=== PATIENT | male | born 1985 | race Caucasian/White ===

== ENCOUNTER 2023-10-07 13:38 | Inpatient (IN) | payer SELFPAY ==
[2023-10-07] VITALS (8 sets, daily range): BP systolic 127–162; BP diastolic 71–83; PULSE 110–126; RESP 13–31; TEMP 36.4–37; O2SAT 93–98; BMI 29.7
--- NOTE | 2023-10-07 14:08 | EX.ED.DYSGE1 ---
HPI <MILTON Gatica - Last Filed: 10/07/23 17:20> History of Present Illness Chief Complaint: General Illness Narrative Narrative: 37-year-old male presents after he became jaundiced over the last 3 days. He was a heavy drinker for years and over the last year had 1 bottle of Southern comfort per day. He essentially detox himself from alcohol at home from September 28 through October 01. He states he did not feel well and was lying in bed with occasional dry heaving and abdominal pain in the details are hazy. Over the last few days he has been feeling better and staying with his parents and drinking plenty of fluids and eating a small amount of toast and soup. He no longer has abdominal pain. He states he has not really had bowel movements recently due to lack of intake. His urine looks dark until he increase fluids. He denies history of alcohol detox or known liver disease. He takes no medications. He smokes 1 pack/day. PFSH <MILTON Gatica - Last Filed: 10/07/23 17:20> PFSH Medical History Alcohol abuse Chronic pain Pancreatitis Medical History no medical history Home Medications ?Medication ?Instructions ?Recorded ?Last Taken ?Type artifi.tears(hypromellose)(PF) 1.7 1 drp EACH EYE BID PRN dry eye(s) 10/07/23 Unknown History % eye drops with applicator prednisone 10 mg tablet See Taper PO DAILY #82 tabs 10/10/23 Unknown Rx Allergy/AdvReac Type Severity Reaction Status Date / Time No Known Allergies Allergy Verified 10/07/23 13:45 Family History no significant family his Surgical History (Updated 10/09/23 @ 14:[address] Nadir Colón MD) History of placement of ear tubes Surgical History no surgical history Social History Smoking Status: Current every day smoker tobacco type: cigarettes ROS <MILTON Gatica - Last Filed: 10/07/23 17:20> ROS ED ROS Narrative Constitutional: Negative for fever, chills. CVS: Negative for chest pain. Respiratory: Negative for shortness of breath. GI: Positive for abdominal pain which resolved. Negative for melena, hematochezia. : Negative for dysuria. EXAM <MILTON Gatica - Last Filed: 10/07/23 17:20> Physical Exam Narrative Exam Narrative: CONST: Patient sitting in no acute distress. EYES: Scleral icterus. ENT: Normal inspection, moist mucous membranes. NECK: Normal inspection. RESP: No respiratory distress, CTAB. CVS: Regular rate and rhythm, no murmur, no gallop. ABD: Soft and nontender, no guarding or rebound, nondistended, fluid wave present. SKIN: Jaundiced. EXTREMITIES: Normal appearance, no pedal edema. NEURO: Alert and answering questions appropriately. PSYCH: Normal affect. Const Vital Signs: 10/07/23 13:40 10/07/23 14:18 10/07/23 15:04 Temperature 97.8 F Temperature Source Temporal Pulse Rate 122 H 110 H Respiratory Rate 16 31 H Respiratory Pattern Normal Blood Pressure 148/78 H 127/72 H Blood Pressure Mean 101 90 Pulse Ox 98 95 Oxygen Delivery Method Room Air 10/07/23 16:21 Temperature Temperature Source Pulse Rate 116 H Respiratory Rate 26 H Respiratory Pattern Blood Pressure 143/77 H Blood Pressure Mean 99 Pulse Ox 95 Oxygen Delivery Method Room Air <Dr. Olu Bridges MD - Last Filed: 10/11/23 07:32> Physical Exam Const Vital Signs: 10/07/23 13:40 10/07/23 14:18 10/07/23 15:04 Temperature 97.8 F Temperature Source Temporal Pulse Rate 122 H 110 H Respiratory Rate 16 31 H Respiratory Pattern Normal Blood Pressure 148/78 H 127/72 H Blood Pressure Mean 101 90 Pulse Ox 98 95 Oxygen Delivery Method Room Air 10/07/23 16:21 Temperature Temperature Source Pulse Rate 116 H Respiratory Rate 26 H Respiratory Pattern Blood Pressure 143/77 H Blood Pressure Mean 99 Pulse Ox 95 Oxygen Delivery Method Room Air MDM <MILTON Gatica - Last Filed: 10/07/23 17:20> [facility] Narrative Medical decision making narrative: History gathered from: patient and family Differential: Alcoholic hepatitis versus liver failure, anemia, electrolyte abnormality Consults: GI, hospitalist Patient has longstanding history of alcohol abuse and recently detoxed at home and now presents with jaundice. He appears well and nontoxic. He is tachycardic between 110?120, otherwise stable vital signs. He has scleral icterus and jaundice. He has mild bibasilar crackles but no symptoms of dyspnea. He has a small amount of abdominal ascites with no tenderness. Labs show significant abnormalities with WBC of 16.0, hemoglobin 8.4, normal platelets at 195. Sodium is 129, potassium 3.1, normal renal function. Total bili is 15.8, elevated LFTs, lipase 119. This is consistent with alcoholic hepatitis and mild pancreatitis. I discussed the case with Dr. Watters who recommended admission and the following treatment: IV Protonix 40 mg every 12 hours IV Solu-Medrol 40 mg every 12 hours Ceftriaxone 1 g every 24 hours due to leukocytosis Blood cultures CT of the abdomen/pelvis which will be obtained. CT shows heterogenous liver suggesting liver disease, ascites, and acute pancreatitis with hypodense lesions throughout the pancreas of unknown significance. Case was discussed with the hospitalist for admission. I have personally performed a face to face assessment of the patient and have reviewed the EDISON Note. I performed a substantive portion of the visit including all aspects of the following. My napoles findings include: History is remarkable for dark-colored urine, jaundice. Patient states he detoxed at home. He was drinking 1/5 of SightCine. He denies black or maroon stool. He states his urine was dark is no longer dark. He denies light-colored stool. Exam is patient is jaundiced. He has scleral icterus. Abdomen is seems prominent. There is fluid wave and shifting dullness. He has no tenderness. He has no bruising noted. PA note was reviewed. Medical Decision Making concern patient has alcoholic liver disease. Will obtain appropriate blood work and determine if patient needs inpatient versus outpatient treatment. Other additions or changes: [None] Lab Data Labs: Laboratory Results - last 24 hr 10/07/23 14:10 WBC 16.0 H RBC 2.45 L Hgb 8.4 L Hct 24.6 L MCV 100.4 H MCH 34.3 H MCHC 34.1 RDW Std Deviation 48.1 H RDW Coeff of Jc 13.2 Plt Count 195 MPV 9.5 Immature Gran % (Auto) 1.100 H Neut % (Auto) 68.6 Lymph % (Auto) 21.1 [place] % (Auto) 8.4 Eos % (Auto) 0.6 Baso % (Auto) 0.2 Absolute Neuts (auto) 11.0 H Absolute Lymphs (auto) 3.39 Nucleated RBC % 0 PT 18.9 H INR 1.6 Sodium 129 L Potassium 3.1 L Chloride 92 L Carbon Dioxide 27.0 Anion Gap 10 BUN 4 L Creatinine 0.75 Estim Creat Clear Calc 161.65 Est GFR (MDRD) Af Amer 151 Est GFR (MDRD) Non-Af 125 BUN/Creatinine Ratio 5.3 L Glucose 113 H Calcium 8.8 Total Bilirubin 15.80 H* Direct Bilirubin 11.22 H AST 164 H ALT 55 Alkaline Phosphatase 202 H Total Protein 7.8 Albumin 1.8 L Globulin 6.0 H Lipase 119 H Radiography Diagnostic Testing: Clinical Impression(s) from Imaging Studies Abdomen/Pelvis CT 10/07/23 15:43 IMPRESSION: (NOT LISTED IN ORDER OF SIGNIFICANCE) Acute pancreatitis. Ascites. Multiple hypodense lesions in the pancreatic head and neck measuring up to 16 mm. These maybe stenosis. These may also represent IPMN. Pancreatic neoplasm is not excluded. Heterogeneous liver suggests hepatocellular disease. Other findings as above. Electronically Signed: Branden Brito MD at 16:41 EDT Reading Location ID and State: [facility] / [place] , Service support , <Dr. Olu Bridges MD - Last Filed: 10/11/23 07:32> [facility] MDM Narrative Medical decision making narrative: I have personally performed a face to face assessment of the patient and have reviewed the EDISON Note. I performed a substantive portion of the visit including all aspects of the following. My napoles findings include: History is remarkable for dark-colored urine, jaundice. Patient states he detoxed at home. He was drinking 1/5 of SightCine. He denies black or maroon stool. He states his urine was dark is no longer dark. He denies light-colored stool. Exam is patient is jaundiced. He has scleral icterus. Abdomen is seems prominent. There is fluid wave and shifting dullness. He has no tenderness. He has no bruising noted. PA note was reviewed. Medical Decision Making concern patient has alcoholic liver disease. Will obtain appropriate blood work and determine if patient needs inpatient versus outpatient treatment. Other additions or changes: [None] Lab Data Attestation: I reviewed the patient's lab results. Lab results narrative: White count is elevated 16,000 with no shift. Patient is anemic with an H&H of 8.4 and 24.6 with macrocytic indices consistent with alcohol abuse. Total bili and direct bili are elevated at 15.8 11.22 respectively. AST is slightly elevated 164 with an alkaline phosphatase 202. Albumin is only 1.8. Lipase is slightly elevated 119. This is not even 2 times normal. This is not significant since patient is having no abdominal pain. PT and INR slightly elevated 18.9 and 1.6 respectively. Electrolyte panel reveals hyponatremia, hypokalemia and hypochloremia. CO2 and anion gap are normal. Labs: Laboratory Results - last 24 hr 10/07/23 14:10 WBC 16.0 H RBC 2.45 L Hgb 8.4 L Hct 24.6 L MCV 100.4 H MCH 34.3 H MCHC 34.1 RDW Std Deviation 48.1 H RDW Coeff of Jc 13.2 Plt Count 195 MPV 9.5 Immature Gran % (Auto) 1.100 H Neut % (Auto) 68.6 Lymph % (Auto) 21.1 [place] % (Auto) 8.4 Eos % (Auto) 0.6 Baso % (Auto) 0.2 Absolute Neuts (auto) 11.0 H Absolute Lymphs (auto) 3.39 Nucleated RBC % 0 PT 18.9 H INR 1.6 Sodium 129 L Potassium 3.1 L Chloride 92 L Carbon Dioxide 27.0 Anion Gap 10 BUN 4 L Creatinine 0.75 Estim Creat Clear Calc 161.65 Est GFR (MDRD) Af Amer 151 Est GFR (MDRD) Non-Af 125 BUN/Creatinine Ratio 5.3 L Glucose 113 H Calcium 8.8 Total Bilirubin 15.80 H* Direct Bilirubin 11.22 H AST 164 H ALT 55 Alkaline Phosphatase 202 H Total Protein 7.8 Albumin 1.8 L Globulin 6.0 H Lipase 119 H Radiography Diagnostic Testing: Clinical Impression(s) from Imaging Studies Abdomen/Pelvis CT 10/07/23 15:43 IMPRESSION: (NOT LISTED IN ORDER OF SIGNIFICANCE) Acute pancreatitis. Ascites. Multiple hypodense lesions in the pancreatic head and neck measuring up to 16 mm. These maybe stenosis. These may also represent IPMN. Pancreatic neoplasm is not excluded. Heterogeneous liver suggests hepatocellular disease. Other findings as above. Electronically Signed: Branden Brito MD at 16:41 EDT , Discharge Plan Triage Chief Complaint: General Illness ED Midlevel Provider: Porsche Coyle ED Provider: Olu Bridges Dx/Rx/DC Orders Clinical Impression: Alcoholic pancreatitis, Alcoholic hepatitis, Leukocytosis, Anemia, Acute hyponatremia, Hypokalemia, Jaundice Primary Care Provider: Care Physician,No Primary
[2023-10-07 14:22] LABS: Absolute Lymphocyte Count 3.39 X10^3/uL (0.83-4.51); Basophil# 0.04 X10^3/uL; Basophil% 0.2 % (0-1); Eosinophils% 0.6 % (0-5); Hematocrit 24.6 % (40-54); Hemoglobin 8.4 g/dL (13.0-16.5); Lymphocyte # 3.39 X10^3/ul (0.83-4.51); Lymphocyte % 21.1 % (19-41); Mean Corp Hgb Conc 34.1 g/dL (32-36); Mean Corpuscular Hgb 34.3 pg (27.0-32.0); Mean Corpuscular Volume 100.4 fL (80-94); Mean Platelet Vol. 9.5 fl (6.2-12.0); Monocyte# 1.35 X10^3/uL; Monocyte% 8.4 % (0-10); NRBC Flagged by Analyzer 0 % (0-5); Neutrophil # 10.99 X10^3/uL (2.7-7.7); Neutrophil % 68.6 % (47-70); Platelet Count 195 K/mm3 (150-450); RBC Distribution Width CV 13.2 % (11.6-14.6); RBC Distribution Width SD 48.1 fl (35.1-43.9); Red Blood Count 2.45 M/mm3 (4.6-6.2)
[2023-10-07 14:41] LABS: International Normalized Ratio 1.6; Prothrombin Time (Protime)PT. 18.9 SECONDS (11.7-14.9)
[2023-10-07 14:43] LABS: AST(SGOT) 164 U/L (15-37); Alanine Aminotransfer ALT/SGPT 55 U/L (16-61); Albumin, Serum 1.8 g/dL (3.2-5.0); Alkaline Phosphatase 202 U/L (45-117); Anion Gap 10 (5-15); BUN 4 mg/dL (7-18); BUN/Creat Ratio 5.3 RATIO (10-20); Bilirubin, Direct 11.22 mg/dL (0.00-0.30); Calcium,Total 8.8 mg/dL (8.5-10.1); Chloride 92 mmol/L (98-107); Creatinine, Serum 0.75 mg/dL (0.70-1.30); EST Glomerular Filtration Rate 125 mL/min (>60); Est Glom Filt Rate - Afr Amer 151 mL/min (>60); Estimated Creatinine Clearance 161.65 ml/min; Glucose 113 mg/dL (74-106); Lipase 119 U/L (13-75); Potassium 3.1 mmol/L (3.5-5.1); Protein, Total 7.8 g/dL (6.4-8.2); Sodium Level 129 mmol/L (136-145)
--- NOTE | 2023-10-07 15:43 | CT_ITS ---
STUDY: CT Abdomen And Pelvis W/ Contrast Injection 10/07/2023 4:36 PM REASON FOR EXAM: Male, 37 years old. liver failure TECHNIQUE: Transaxial images were obtained without oral contrast, and IV 100mL Isovue-370 intravenous contrast. Individualized dose optimization techniques were used for this CT. COMPARISON: None FINDINGS: The visualized lung bases are unremarkable. The visualized portions of the heart are within normal limits. There is hepatomegaly with diffuse hepatic enlargement. Free fluid around the liver. Liver appears slightly heterogeneous. Unremarkable gallbladder and extrahepatic biliary system. Unremarkable spleen. There is diffuse enlargement of the pancreas with tucker-pancreatic edema suggesting acute pancreatitis. Multiple hypodense lesions in the pancreatic head and neck measuring up to 16 mm. These maybe stenosis. These may also represent IPMN. Pancreatic neoplasm is not excluded. SE 2 iM: 49. Scattered subcentimeter lymph nodes around the pancreas. Unremarkable bilateral adrenal glands. No acute findings of the right kidney. No acute findings of the left kidney. Unremarkable visualized stomach. Unremarkable small intestine. Unremarkable colon. There is non-visualization of the appendix. There are no acute findings of the abdominal aorta. Unremarkable inferior vena cava. Subcentimeter mesenteric lymph nodes. Unremarkable urinary bladder. Mild presacral inflammatory changes. There are bilateral inguinal hernias containing fat. There is no bowel involvement. There is no incarceration. There is no findings suggesting that this is causing a bowel obstruction. Unremarkable osseous structures. CT/Abdomen/Pelvis W IV Cont ONLY IMPRESSION: (NOT LISTED IN ORDER OF SIGNIFICANCE) Acute pancreatitis. Ascites. Multiple hypodense lesions in the pancreatic head and neck measuring up to 16 mm. These maybe stenosis. These may also represent IPMN. Pancreatic neoplasm is not excluded. Heterogeneous liver suggests hepatocellular disease. Other findings as above. Electronically Signed: Branden Brito MD at 16:41 EDT ,
--- NOTE | 2023-10-07 15:55 | EX.PCM.CON.G ---
HPI Consult Data Date of Consult: 10/08/23 HPI Narrative Reason for Consultation: Jaundice HPI Narrative: JAVIER LANTIGUA, is a 37 M who presents to the ED with worsening abdominal pain and jaundice. He has a past medical history of alcohol abuse. He came into the hospital after being very nauseous and dizzy. He did have 1 episode of vomiting. In the ED he was discovered to be normotensive and tachycardic. Biochemical workup was consistent with alcoholic hepatitis and alcoholic pancreatitis. No imaging thus far. He does have an INR 1.6 and a bilirubin of 15. He does not take any blood thinners. He takes no medicines on a daily basis. He denies any Tylenol. Denies any family history of liver disease. [facility] Medical History (Updated 10/08/23 @ 16:[address] Naeem Pino, ) Alcohol abuse Chronic pain Pancreatitis Medical History no medical history Home Medications ?Medication ?Instructions ?Recorded ?Last Taken ?Type artifi.tears(hypromellose)(PF) 1.7 1 drp EACH EYE BID PRN dry eye(s) 10/07/23 Unknown History % eye drops with applicator Allergy/AdvReac Type Severity Reaction Status Date / Time No Known Allergies Allergy Verified 10/07/23 13:45 Family History no significant family his Surgical History no surgical history Social History Smoking Status: Current every day smoker tobacco type: cigarettes ROS Review of Systems ROS Unobtainable: other Constitutional Constitutional: Denies fatigue, fever(s), poor appetite, weight gain or weight loss ENT HEENT: Denies mouth lesions Cardiovascular Cardiovascular: Denies abdominal bloating, abdominal edema or abdominal pain Respiratory/Chest Respiratory/Chest: Denies change in mental status, change in phlegm color, chest congestion or chest tightness Gastrointestinal Gastrointestinal: Denies belching, bloating, change in bowel habits, change in stool character, chewing difficulty, coffee ground emesis, constipation, cramping, diarrhea, dyspepsia, dysphagia, early satiety, excessive flatus, fecal incontinence, heartburn, hematemesis, hematochezia, hemorrhoids, loose stools, melena, nausea, odynophagia, rectal bleeding, tenesmus, vomiting or weight changes Genitourinary Genitourinary: Denies abdominal discomfort, burning urination or itching Musculoskeletal Musculoskeletal: Reports as per HPI; Denies muscle weakness or myalgias Integumentary Integumentary: Denies jaundice Neurologic Neurologic: Denies lack of coordination or weakness Psychiatric Psychiatric: Denies confusion, depression, memory loss, mood swings, paranoia or suicidal ideation Endocrine Endocrinology: Denies systems reviewed and no addt'l complaints, except as documented Hematologic/Lymphatic Hematologic/Lymphatic: Denies anemia, easy bleeding, easy bruising or lymphadenopathy Allergic/Immunologic Allergic/Immunologic: Denies systems reviewed and no addt'l complaints, except as documented Physical Exam Const alert General Appearance: cooperative Orientation / Consciousness: oriented to person HEENT hearing grossly normal bilaterally Head and Scalp: normal to inspection Face and Sinus: face symmetric Nose: external nose normal Mouth: oral and palatal mucosa normal Eyes conjunctivae normal General Eye: normal appearance of both eyes Neck full ROM General: normal visual inspection Lymph Lymphatic: no lymphadenopathy noted Chest inspection of chest normal and palpation of chest normal Chest: symmetrical chest wall rise Resp normal respiratory effort Effort and Inspection: able to speak in complete sentences Cardio regular rate GI non-distended Percussion: normal to percussion Rectal Exam: deferred Neuro Speech: speech normal Gait (Neuro): normal gait Lab / Micro Data 10/08/23 05:00 10/08/23 05:00 Labs: Laboratory Results - last 24 hr 10/07/23 14:10: WBC 16.0 H, RBC 2.45 L, Hgb 8.4 L, Hct 24.6 L, MCV 100.4 H, MCH 34.3 H, MCHC 34.1, RDW Std Deviation 48.1 H, RDW Coeff of Jc 13.2, Plt Count 195, MPV 9.5, Immature Gran % (Auto) 1.100 H, Neut % (Auto) 68.6, Lymph % (Auto) 21.1, [place] % (Auto) 8.4, Eos % (Auto) 0.6, Baso % (Auto) 0.2, Absolute Neuts (auto) 11.0 H, Absolute Lymphs (auto) 3.39, Nucleated RBC % 0, PT 18.9 H, INR 1.6, Sodium 129 L, Potassium 3.1 L, Chloride 92 L, Carbon Dioxide 27.0, Anion Gap 10, BUN 4 L, Creatinine 0.75, Estim Creat Clear Calc 161.65, Est GFR (MDRD) Af Amer 151, Est GFR (MDRD) Non-Af 125, BUN/Creatinine Ratio 5.3 L, Glucose 113 H, Calcium 8.8, Total Bilirubin 15.80 H*, Direct Bilirubin 11.22 H, AST 164 H, ALT 55, Alkaline Phosphatase 202 H, Total Protein 7.8, Albumin 1.8 L, Globulin 6.0 H, Lipase 119 H Assessment & Plan Assessment/Plan (1) Alcoholic pancreatitis: (2) Alcoholic hepatitis: (3) Cirrhosis: PLAN: Plan 37-year-old with past medical history of alcohol abuse presents with worsening jaundice and abdominal pain. His labs, presentation and I suspect imaging will show alcoholic pancreatitis and alcoholic hepatitis with hepatosplenomegaly. His Madre score is 37. I would recommend methylprednisolone 40 mg every 12 hours. He does have some mild encephalopathy. I will get blood cultures and put him on ceftriaxone 1 g daily. I will get imaging with a CT scan abdomen pelvis. He will eventually need upper endoscopy for screening for varices. Hyponatremia-secondary to possible beer [place] He should get acute hepatitis A, B, and C drawn this if he has any other history of hepatitis other than alcoholic hepatitis. Charges/Coding Visit Charges Inpatient E&M: 99171 Init Hosp L3
[2023-10-07] MEDS: Pantoprazole Sodium 40 MG in 0.9% Normal Saline (100mL MB+) 100 ML 330 MG IV (16:17)
[2023-10-07] MEDS: Ceftriaxone 1 GM/50 ML BAG IV (16:38)
--- NOTE | 2023-10-07 17:03 | PCM.HP.STD ---
HPI - General General Date of Admission: 10/07/23 Date of Service: 10/07/23 Chief Complaint: Jaundice HPI Narrative JAVIER LANTIGUA, is a 37 M who presents to the ED with jaundice. He drinks 1 bottle of cheap alcohol every day, and smokes about a pack a day. He tried to quit alcohol 3 days back, after experiencing detoxification symptoms he moved over to his mom's place. Per the mother his diet is very erratic and poor. He has noticed worsening jaundice of his skin for the last 2 days. Mother noticed it when he moved over to her house. Denies any abdominal pain His vitals in the ED blood pressure 143/77 pulse 116, respiratory rate 26 well on room air, WBC 16.0, hemoglobin 8.4, platelet 195, INR 1.6, sodium 129, potassium 3.1, creatinine 0.7, total bilirubin 15.8, direct bilirubin 11.2, AST 164 ALT 55, alk phos 202, albumin 1.8, lipase 119 CT abdomen showed hepatomegaly with diffuse hepatic enlargement, free fluid around the liver, unremarkable gallbladder and extracardiac biliary system, diffuse enlargement of the pancreas with peripancreatic edema suggestive of acute pancreatitis hypodense lesions in the head and neck measuring up to 16 mm, pancreatic neoplasm is not excluded could be IPMN, scattered subcentimeter lymph nodes around the pancreas. Bilateral inguinal hernias containing fat. Blood cultures have been sent from the ED. Gastroenterology evaluated the patient in the ED for abdominal pain and jaundice there are concerns regarding alcoholic hepatitis and plan alcoholic pancreatitis it is recommended to be on methylprednisone 40 mg every 12 hours for Madrey score of 37. PFSH Medical History no medical history Home Medications ?Medication ?Instructions ?Recorded ?Last Taken ?Type artifi.tears(hypromellose)(PF) 1.7 1 drp EACH EYE BID PRN dry eye(s) 10/07/23 Unknown History % eye drops with applicator Allergy/AdvReac Type Severity Reaction Status Date / Time No Known Allergies Allergy Verified 10/07/23 13:45 Family History no significant family his Surgical History no surgical history Social History Smoking Status: Unknown if ever smoked ROS Review of Systems ROS Unobtainable: Denies due to encephalopathy, due to endotracheal tube, due to mental condition, due to mental status or other Constitutional Constitutional: Reports change in weight, fatigue and malaise Eyes Eyes: Denies blurry vision, change in eye color, change in vision, discharge from eye(s), double vision, erythema, eye pain, loss of vision or other ENT HEENT: Denies abnormal hearing, dysphagia, ear pain, epistaxis, headache(s), hearing loss, nasal congestion, nasal discharge, post nasal drip, sinus pressure, sore throat or other Cardiovascular Cardiovascular: Denies chest pain, claudication, dyspnea on exertion, edema, lightheadedness, orthopnea, palpitations, paroxysmal nocturnal dyspnea, rapid heart rate, syncope or other Respiratory/Chest Respiratory/Chest: Denies cough, dyspnea, excessive phlegm production, hemoptysis, productive cough, shortness of breath at rest, shortness of breath with exertion, wheezing or other Gastrointestinal Gastrointestinal: Reports constipation; Denies hematemesis, hematochezia, loose stools, melena, nausea or vomiting Genitourinary Genitourinary: Denies burning urination, difficulty urinating, dysuria, hematuria, nocturia, urinary frequency, urinary hesitancy, urinary incontinence, urinary urgency or other Musculoskeletal Musculoskeletal: Denies arthralgias, back pain, joint pain, joint stiffness, joint swelling, myalgias, neck pain or other Neurologic Neurologic: Denies abnormal gait, abnormal speech, confusion, disequilibrium, dizziness, focal weakness, headache(s), numbness, paresthesias, seizure-like activity, seizures, syncope, tingling, tremor(s) or other Psychiatric Psychiatric: Denies anxiety, depression, homicidal ideation, suicidal ideation or other Endocrine Endocrinology: Denies change in body appearance, cold intolerance, excessive sweating, heat intolerance, polydipsia, polyuria or other Hematologic/Lymphatic Hematologic/Lymphatic: Denies anemia, easy bleeding, easy bruising, lymphadenopathy or other Allergic/Immunologic Allergic/Immunologic: Denies rhinitis, hives, eczemia, asthma or other Vital Signs Vital Signs Vital Signs: 10/07/23 13:40 10/07/23 14:18 10/07/23 15:04 Temperature 97.8 F Temperature Source Temporal Pulse Rate 122 H 110 H Respiratory Rate 16 31 H Respiratory Pattern Normal Blood Pressure 148/78 H 127/72 H Blood Pressure Mean 101 90 Pulse Ox 98 95 Oxygen Delivery Method Room Air 10/07/23 16:21 Temperature Temperature Source Pulse Rate 116 H Respiratory Rate 26 H Respiratory Pattern Blood Pressure 143/77 H Blood Pressure Mean 99 Pulse Ox 95 Oxygen Delivery Method Room Air Weight Weight: 213 lb 9.6 oz Body Mass Index (BMI) 29.7 Physical Exam Const alert and oriented x3 HEENT normocephalic and moist oral mucous membranes Eyes Eyes Narrative: Deeply icteric Neck no lymphadenopathy Resp normal respiratory effort Cardio regular rate and regular rhythm GI normal to inspection, nondistended, normoactive bowel sounds Extremity normal to inspection Skin Skin Narrative: BP jaundiced, freckles over the entire skin, spider angiomata present Neuro oriented x3 Psych affect normal Results Medical Records Data Attestation: I reviewed the patient's medical records Lab / Micro Data Attestation: I reviewed the patient's lab results. 10/07/23 14:10 10/07/23 14:10 Labs: Laboratory Results - last 24 hr 10/07/23 14:10: WBC 16.0 H, RBC 2.45 L, Hgb 8.4 L, Hct 24.6 L, MCV 100.4 H, MCH 34.3 H, MCHC 34.1, RDW Std Deviation 48.1 H, RDW Coeff of Jc 13.2, Plt Count 195, MPV 9.5, Immature Gran % (Auto) 1.100 H, Neut % (Auto) 68.6, Lymph % (Auto) 21.1, [place] % (Auto) 8.4, Eos % (Auto) 0.6, Baso % (Auto) 0.2, Absolute Neuts (auto) 11.0 H, Absolute Lymphs (auto) 3.39, Nucleated RBC % 0, PT 18.9 H, INR 1.6, Sodium 129 L, Potassium 3.1 L, Chloride 92 L, Carbon Dioxide 27.0, Anion Gap 10, BUN 4 L, Creatinine 0.75, Estim Creat Clear Calc 161.65, Est GFR (MDRD) Af Amer 151, Est GFR (MDRD) Non-Af 125, BUN/Creatinine Ratio 5.3 L, Glucose 113 H, Calcium 8.8, Total Bilirubin 15.80 H*, Direct Bilirubin 11.22 H, AST 164 H, ALT 55, Alkaline Phosphatase 202 H, Total Protein 7.8, Albumin 1.8 L, Globulin 6.0 H, Lipase 119 H Imaging Radiology Impression Abdomen/Pelvis CT 10/07/23 15:43 IMPRESSION: (NOT LISTED IN ORDER OF SIGNIFICANCE) Acute pancreatitis. Ascites. Multiple hypodense lesions in the pancreatic head and neck measuring up to 16 mm. These maybe stenosis. These may also represent IPMN. Pancreatic neoplasm is not excluded. Heterogeneous liver suggests hepatocellular disease. Other findings as above. Electronically Signed: Branden Brito MD at 16:41 EDT Reading Location ID and State: [facility] / [place] , Service support , Assessment & Plan Assessment/Plan (1) Jaundice: PLAN: Plan 37-year-old with no significant past medical history presents to the ED with worsening jaundice over the last few days. He has a significant history of alcohol use drinks about 1 bottle of liquor every day along with 1 pack of cigarettes per day. The reason for his jaundice is not entirely clear but likely associated with acute alcoholic hepatitis with suspected underlying cirrhosis based on clinical exam [spider angiomas], hypoalbuminemia and coagulopathy. Pancreatitis seen on imaging but patient does not have abdominal pain, and lipase is less than 3 times upper limit of normal. Does not fulfill criteria for acute pancreatitis. #Acute alcoholic hepatitis [Madrey discriminant function 36] #Suspected underlying cirrhosis -Appreciate recs by gastroenterology -Prednisone 40 mg daily, switch to prednisolone after viral serologies negative -Check Lille score after 1 week of therapy -Hepatitis B,C,A, HIV serology -Daily coagulopathy labs -Daily liver labs -MRCP given the lesion in the pancreas head to rule out malignancy or mass [painless jaundice] -Nutrition consult given the severe hypoalbuminemia -Importance of alcohol cessation was emphasized, last drink was 4 days back out of withdrawal time period -May require outpatient EGD for variceal screening #Acute pancreatitis on imaging #IPMN/pancreatic lesion -Clinically does not fulfill criteria for acute pancreatitis -MRCP as above #Hypokalemia -Continue monitor Open received correction in the ED #Hypertension -Monitor blood pressure -Not starting anti hypertensives right now #Chronic smoking -Nicotine cessation and nicotine patches as needed #DVT: -Moderate risk -Risk despite of increased INR given the cirrhosis -Injection heparin 5000 units twice daily Charges/Coding Visit Charges Inpatient E&M: 61910 Init Hosp L2
[2023-10-07] MEDS: Potassium Chloride Oral Tablet 20 MEQ 40 MEQ PO (17:36)
[2023-10-07] MEDS: Heparin Injection (Vial) 5,000 UNIT/ML VIAL 5000 UNIT SC (20:14)
[2023-10-08 02:50] VITALS: BP 127/73; PULSE 105; RESP 16; TEMP 35.9; O2SAT 92
[2023-10-08 03:16] VITALS: BMI 29.7
[2023-10-08 05:40] LABS: Absolute Lymphocyte Count 2.26 X10^3/uL (0.83-4.51); Absolute Neutrophil Count 11.4 X10^3/uL (2.0-7.7); Basophil# 0.02 X10^3/uL; Basophil% 0.1 % (0-1); Eosinophil# 0.01 X10^3/uL; Eosinophils% 0.1 % (0-5); Hematocrit 22.4 % (40-54); Hemoglobin 7.7 g/dL (13.0-16.5); Lymphocyte # 2.26 X10^3/ul (0.83-4.51); Lymphocyte % 15.1 % (19-41); Mean Corp Hgb Conc 34.4 g/dL (32-36); Mean Corpuscular Hgb 34.8 pg (27.0-32.0); Mean Corpuscular Volume 101.4 fL (80-94); Mean Platelet Vol. 9.5 fl (6.2-12.0); Monocyte# 1.13 X10^3/uL; Monocyte% 7.6 % (0-10); NRBC Flagged by Analyzer 0 % (0-5); Neutrophil # 11.39 X10^3/uL (2.7-7.7); Neutrophil % 76.2 % (47-70); Platelet Count 180 K/mm3 (150-450); RBC Distribution Width CV 13.6 % (11.6-14.6); Red Blood Count 2.21 M/mm3 (4.6-6.2)
[2023-10-08 06:17] LABS: International Normalized Ratio 1.6; Prothrombin Time (Protime)PT. 19.4 SECONDS (11.7-14.9)
[2023-10-08 06:19] LABS: ALB/GLOB Ratio 0.3 RATIO (0.9-2.4); AST(SGOT) 138 U/L (15-37); Alanine Aminotransfer ALT/SGPT 55 U/L (16-61); Albumin, Serum 1.6 g/dL (3.2-5.0); Alkaline Phosphatase 184 U/L (45-117); Anion Gap 7 (5-15); BUN 7 mg/dL (7-18); BUN/Creat Ratio 13.3 RATIO (10-20); Bilirubin, Direct 8.94 mg/dL (0.00-0.30); Calcium,Total 8.5 mg/dL (8.5-10.1); Chloride 96 mmol/L (98-107); Creatinine, Serum 0.52 mg/dL (0.70-1.30); EST Glomerular Filtration Rate 188 mL/min (>60); Est Glom Filt Rate - Afr Amer 228 mL/min (>60); Estimated Creatinine Clearance 232.72 ml/min; Globulin 5.7 g/dL (2.2-4.2); Glucose 138 mg/dL (74-106); Magnesium 2.4 mg/dL (1.6-2.6); Potassium 4.1 mmol/L (3.5-5.1); Protein, Total 7.3 g/dL (6.4-8.2); Sodium Level 130 mmol/L (136-145); Thyroid Stim Hormone (TSH) 1.18 uIU/mL (0.358-3.74)
[2023-10-08 07:37] VITALS: PULSE 100
--- NOTE | 2023-10-08 07:57 | NURSING ---
pt notified he is not allowed to eat or drink until after the MRI, which scheduled for 0900 to 0930, verbalized understanding.
[2023-10-08 08:32] VITALS: BP 125/70; PULSE 107; RESP 18; TEMP 37; O2SAT 95
--- NOTE | 2023-10-08 09:00 | MRI_ITS ---
STUDY: MR CHOLANGIOPANCREATOGRAPHY (MRCP) REASON FOR EXAM: Male, 37 years old. Pancreatic mass with obstructive jaundice, ABDOMEN CT TECHNIQUE: Standard MRCP technique was utilized. COMPARISON: None. FINDINGS: Gall Bladder: Normal with no distention or demonstrated fixed intraluminal filling defect. Cystic duct: Normal with no demonstrated fixed filling defect. Intrahepatic ducts: Normal visualized intrahepatic ducts with no demonstrated fixed filling defect, dilation or stricture. Common hepatic duct: Normal with no demonstrated fixed filling defect, dilation or stricture. Common bile duct: Mild narrowing of the distal common bile duct in the head of the pancreas consistent with extrinsic compression from a pancreatic head mass. Pancreatic duct: Normal with no demonstrated fixed filling defect, dilation or stricture. MRI/MRCP Abdomen without Contrast IMPRESSION: Mild extrinsic compression of the distal common bile duct due to pancreatic head mass. Electronically Signed: Rico Newsome MD at 11:53 EDT ,
[2023-10-08 09:10] LABS: Ferritin 1039 ng/mL (26-388); Iron 70 ug/dL (65-175); Iron Binding Capacity,Total 74 ug/dL (250-450); PERCENT IRON SATURATION 94.6 % (15.0-55.0)
[2023-10-08 10:28] LABS: Vitamin B12 1646 pg/mL (211-911)
[2023-10-08] MEDS: predniSONE 20 MG Tablet 40 MG PO (10:47)
[2023-10-08] MEDS: Heparin Injection (Vial) 5,000 UNIT/ML VIAL 5000 UNIT SC ×2 (10:47→21:35)
--- NOTE | 2023-10-08 10:47 | CASEMGMT ---
Social Work As per admitting RN, pt does nto have LW/POA and declined further information. JIMMIE Garg
[2023-10-08 10:51] VITALS: O2SAT 94
--- NOTE | 2023-10-08 11:02 | NURSING ---
pt informed need urine specimen, and should call when he has voided.m verbalized understanding.
--- NOTE | 2023-10-08 12:00 | CASEMGMT ---
IVÁN CASTILLO Face to Face with patient for initial transition planning/care coordination assessment. IVÁN CASTILLO introduced self and role at [facility]. Patient lying in bed, alert and oriented, mother at bedside. Patient willing to participate in assessment and is able to answer all questions appropriately. Care providers, pharmacy, and demographics verified. PCP: No PCP, list provided and [facility] Specialists: none Preferred Pharmacy: [facility] Insurance: None Prescription Benefit: none Living Will/HPOA: none LNOK: mother, brother Living Arrangements: Patient lives alone but will be staying with his mother in a single story home when he discharges. Patient is independent at home. Transportation: self, mother DME/HHC: Patient denies DME in the home. No previous HHC or SNF. Patient smoke 1ppd of cigarettes and drinks 1/5 of [place] daily, states he quit 4 days ago. IVÁN CASTILLO offered addiction counselor for resources, patient declined. Patient wishes to discharge home, denies needs at discharge. Patient states he has no further needs or concerns at this time. CM to follow for discharge planning needs that may arise. Disposition Plan: Patient to discharge home with family support and follow-up plans in place. Will monitor cost of medications at discharge. Sharon HILARIO, RN, CM
--- NOTE | 2023-10-08 12:38 | PCM.PN.HOSP ---
Reason for Visit Reason for Visit: Diagnoses Unspecified jaundice (10/07/23) Subjective Subjective Saw patient at bedside this morning, mother present. Patient appeared to have good energy this morning, was sitting up comfortably in bed, conversing normally, in no acute distress. Patient stated that he felt significantly better today than on admission. Stated that for the 4-5 days prior to admission he was hardly eating anything, was very weak and not able to do much of anything for himself. Today, he has been up and walking around the floor without issue and his appetite is significantly improved. He denies any other new concerns morning. Objective Data Objective Data Vital Signs: Vital Signs Temp Pulse Resp BP Pulse Ox O2 Del Method 98.6 F 107 H 18 125/70 H 94 Room Air 10/08/23 08:32 10/08/23 08:32 10/08/23 08:32 10/08/23 08:32 10/08/23 10:51 10/08/23 10:51 Oxygen Delivery Method Room Air Weight: 96.5 kg Body Mass Index (BMI) 29.7 Intake & Output: Intake and Output for Last 24 Hours 10/06/23 10/07/23 10/08/23 23:59 23:59 23:59 Intake Total 160 / 160 Balance 160 / 160 Lab / Micro Data 10/08/23 05:00 10/08/23 05:00 Labs: Laboratory Results - last 24 hr 10/07/23 14:10: WBC 16.0 H, RBC 2.45 L, Hgb 8.4 L, Hct 24.6 L, MCV 100.4 H, MCH 34.3 H, MCHC 34.1, RDW Std Deviation 48.1 H, RDW Coeff of Jc 13.2, Plt Count 195, MPV 9.5, Immature Gran % (Auto) 1.100 H, Neut % (Auto) 68.6, Lymph % (Auto) 21.1, [place] % (Auto) 8.4, Eos % (Auto) 0.6, Baso % (Auto) 0.2, Absolute Neuts (auto) 11.0 H, Absolute Lymphs (auto) 3.39, Nucleated RBC % 0, PT 18.9 H, INR 1.6, Sodium 129 L, Potassium 3.1 L, Chloride 92 L, Carbon Dioxide 27.0, Anion Gap 10, BUN 4 L, Creatinine 0.75, Estim Creat Clear Calc 161.65, Est GFR (MDRD) Af Amer 151, Est GFR (MDRD) Non-Af 125, BUN/Creatinine Ratio 5.3 L, Glucose 113 H, Calcium 8.8, Total Bilirubin 15.80 H*, Direct Bilirubin 11.22 H, AST 164 H, ALT 55, Alkaline Phosphatase 202 H, Total Protein 7.8, Albumin 1.8 L, Globulin 6.0 H, Lipase 119 H 10/08/23 05:00: WBC 15.0 H, RBC 2.21 L, Hgb 7.7 L, Hct 22.4 L, MCV 101.4 H, MCH 34.8 H, MCHC 34.4, RDW Std Deviation 50.0 H, RDW Coeff of Jc 13.6, Plt Count 180, MPV 9.5, Immature Gran % (Auto) 0.900, Neut % (Auto) 76.2 H, Lymph % (Auto) 15.1 L, [place] % (Auto) 7.6, Eos % (Auto) 0.1, Baso % (Auto) 0.1, Absolute Neuts (auto) 11.4 H, Absolute Lymphs (auto) 2.26, Nucleated RBC % 0, PT 19.4 H, INR 1.6, Sodium 130 L, Potassium 4.1, Chloride 96 L, Carbon Dioxide 27.0, Anion Gap 7, BUN 7, Creatinine 0.52 L, Estim Creat Clear Calc 232.72, Est GFR (MDRD) Af Amer 228, Est GFR (MDRD) Non-Af 188, BUN/Creatinine Ratio 13.3, Glucose 138 H, Calcium 8.5, Phosphorus 4.0, Magnesium 2.4, Iron 70, TIBC 74 L, Iron Saturation 94.6 H, Ferritin 1039 H, Total Bilirubin 12.50 H, Direct Bilirubin 8.94 H, AST 138 H, ALT 55, Alkaline Phosphatase 184 H, Total Protein 7.3, Albumin 1.6 L, Globulin 5.7 H, Albumin/Globulin Ratio 0.3 L, Folate 3.20, TSH 1.18 10/08/23 09:03: Vitamin B12 1646 H Radiography Diagnostic Testing: Radiology Impression Abdomen/Pelvis CT 10/07/23 15:43 IMPRESSION: (NOT LISTED IN ORDER OF SIGNIFICANCE) Acute pancreatitis. Ascites. Multiple hypodense lesions in the pancreatic head and neck measuring up to 16 mm. These maybe stenosis. These may also represent IPMN. Pancreatic neoplasm is not excluded. Heterogeneous liver suggests hepatocellular disease. Other findings as above. Electronically Signed: Branden Brito MD at 16:41 EDT , MRCP 10/08/23 09:00 IMPRESSION: Mild extrinsic compression of the distal common bile duct due to pancreatic head mass. Electronically Signed: Rico Newsome MD at 11:53 EDT , Physical Exam Const alert, oriented x3, no apparent distress and average body habitus Constitutional Narrative: Pleasant younger male, jaundiced, somewhat disheveled appearing, otherwise sitting up comfortably in bed, conversing normally, in no acute distress. General Appearance: cooperative and comfortable HEENT normocephalic, head/scalp atraumatic, hearing grossly normal bilaterally, nasal mucous membranes and turbinates normal and moist oral mucous membranes Eyes PERRL and EOMs intact bilaterally Eyes Narrative: Scleral icterus noted. Neck full ROM Chest inspection of chest normal Resp normal respiratory effort, normal air movement, no use of accessory muscles and clear to auscultation bilaterally Cardio regular rate, regular rhythm, no murmurs and peripheral pulses 2+ throughout GI normal to inspection, nondistended, normoactive bowel sounds, soft to palpation, non-tender and non-distended Back/Spine normal ROM Extremity normal to inspection, full ROM and no pedal edema Skin Skin Narrative: Whole-body jaundice noted. Spider angiomata present. Neuro moves all extremities and no focal motor deficits Speech: speech normal Psych mental status grossly normal Assessment & Plan Assessment/Plan (1) Alcoholic hepatitis: (2) Mass of head of pancreas: (3) Acute hyponatremia: (4) Anemia: PLAN: Plan Patient is a 37-year-old male who presented to [facility] ED on 10/07/2023 with new onset jaundice. 1. Acute alcoholic hepatitis with suspected underlying cirrhosis ? GI following. Labs, imaging and presentation all consistent with alcoholic hepatitis with hepatosplenomegaly. Concern for underlying cirrhosis given clinical exam (spider angiomas), hypoalbuminemia and coagulopathy. Maddrey's score of 37 on admit. Continue prednisone 40 mg daily. LFTs improving and patient clinically improving on steroids. Continue to monitor daily liver labs and coagulopathy labs. Hepatitis panel and other GI labs pending. Will eventually need upper endoscopy for screening for varices. 2. Acute pancreatitis on imaging with pancreatic head lesion ? GI following as above. Pancreatic head lesion with common bile duct dilation, as well as findings consistent with acute pancreatitis noted on CT abdomen pelvis. Notably did not meet pancreatitis criteria as lipase was normal and patient had no abdominal pain. MRCP 10/07 showed mild narrowing of the distal common bile duct in the head of pancreas consistent with extrinsic compression from a pancreatic head mass. Suspect patient may need ERCP with biopsy of pancreatic head mass but will defer to GI for further recs. 3. Alcohol abuse ? Was drinking 1/5 of alcohol daily prior to admission. Several year history of heavy drinking, no history of significant alcohol withdrawal per patient. Quit drinking about 4 days prior to hospitalization as his p.o. intake was severely limited by worsening alcohol hepatitis. No alcohol withdrawal symptoms to this point, [facility] protocol not necessary at this time. Strongly encouraged alcohol cessation on discharge. Continue folate and thiamine. Case management following. 4. Macrocytic anemia ? Hemoglobin 8.4 on admit, decreased to 7.7 on hospital day 2. Baseline unknown. MCV around 100. Iron studies consistent with anemia of chronic disease. B12 level normal, folate borderline low. Continue folate as above. Monitor CBC daily. 5. Hyponatremia, stable ? Sodium 129 on admit, up to 130 on hospital day 2. Baseline unknown. Suspect primarily due to poor p.o. intake with possibly some degree of beer potomania. Monitor daily sodium. 6. Hypoalbuminemia, malnutrition ruled out ? Albumin 1.6 on admit. Nutrition evaluated, did not meet criteria for malnutrition. Will supplement meals with Ensure plus high-protein per nutrition recommendations. 7. Hypokalemia, resolved ? Potassium 3.1 on admit, improved with repletion. 8. Elevated blood pressures, improved ? Elevated blood pressures on admit with no known diagnosis of hypertension. Blood pressures now stable in normotensive range, no need for antihypertensive medication. 9. Tobacco abuse ? Smokes 1 pack of cigarettes per day. Nicotine patch ordered per patient request. Encouraged cessation on discharge. DVT prophylaxis: Heparin subcu CODE STATUS: Full code, verified Expected disposition: Home, 2 to 3 days Total clinical time spent by myself addressing the patient's medical issues, reviewing all the data, and collaborating with patient's care team: 35 minutes. Charges/Coding Visit Charges Inpatient E&M: 74522 Subs Hosp L2
[2023-10-08 13:54] VITALS: BP 125/78; PULSE 100; PULSE 106; PULSE 107; RESP 18; RESP 20; TEMP 36.8; O2SAT 92
[2023-10-08 14:24] LABS: HIV - WCH Non-Reactive (Nonreactive); Hepatitis B Surface Antibody Reactive; Hepatitis B Surface Antigen Non-Reactive (Nonreactive); Hepatitis C Antibody Non-Reactive (Nonreactive)
[2023-10-08] MEDS: Thiamine Hydrochloride 100 MG Tablet PO (14:50)
--- NOTE | 2023-10-08 15:35 | CASEMGMT ---
Social Work- SW met with pt to provide resources, as pt is self pay. SW provided information on [facility] free clinic and [facility] community resources/[facility] book. Pt reports that he works full-time and earns $16/hour. SW was advised that Tracey/[employer] is going to meet with pt; CLINTON confirmed with Tracey. RAKESH Rosado
[2023-10-08] MEDS: Folic Acid 1 MG Tablet 2 MG PO (16:18)
[2023-10-08 21:31] VITALS: BP 136/73; PULSE 110; RESP 18; TEMP 36.8; O2SAT 95
[2023-10-09] VITALS (10 sets, daily range): BP systolic 102–159; BP diastolic 77–99; PULSE 96–123; RESP 16–24; TEMP 36.4–37.1; O2SAT 88–95; BMI 29.5
[2023-10-09 06:09] LABS: HEPATITIS B SURFACE AG Negative (Negative); Hep C Antibodies Non Reactive (Non Reactive); Hepatitis A IgM Antibody Negative (Negative); Hepatitis B Core AB IgM Negative (Negative)
[2023-10-09 08:32] LABS: Hemoglobin 7.4 g/dL (13.0-16.5); Mean Corp Hgb Conc 33.6 g/dL (32-36); Mean Corpuscular Hgb 34.1 pg (27.0-32.0); Mean Corpuscular Volume 101.4 fL (80-94); Mean Platelet Vol. 9.5 fl (6.2-12.0); Platelet Count 211 K/mm3 (150-450); RBC Distribution Width CV 13.7 % (11.6-14.6); RBC Distribution Width SD 50.3 fl (35.1-43.9); Red Blood Count 2.17 M/mm3 (4.6-6.2); White Blood Count 20.3 K/mm3 (4.4-11.0)
[2023-10-09 08:58] LABS: ALB/GLOB Ratio 0.3 RATIO (0.9-2.4); AST(SGOT) 153 U/L (15-37); Alanine Aminotransfer ALT/SGPT 65 U/L (16-61); Albumin, Serum 1.8 g/dL (3.2-5.0); Alkaline Phosphatase 240 U/L (45-117); Anion Gap 5 (5-15); BUN 9 mg/dL (7-18); BUN/Creat Ratio 14.6 RATIO (10-20); Calcium,Total 8.7 mg/dL (8.5-10.1); Chloride 95 mmol/L (98-107); Creatinine, Serum 0.62 mg/dL (0.70-1.30); EST Glomerular Filtration Rate 156 mL/min (>60); Est Glom Filt Rate - Afr Amer 188 mL/min (>60); Estimated Creatinine Clearance 194.91 ml/min; Globulin 5.8 g/dL (2.2-4.2); Glucose 94 mg/dL (74-106); Potassium 3.4 mmol/L (3.5-5.1); Protein, Total 7.6 g/dL (6.4-8.2); Sodium Level 130 mmol/L (136-145)
[2023-10-09] MEDS: predniSONE 20 MG Tablet 40 MG PO (09:31)
--- NOTE | 2023-10-09 11:56 | PCM.PN.HOSP ---
Reason for Visit Reason for Visit: Diagnoses Anemia, unspecified (10/07/23) Hypo-osmolality and hyponatremia (10/07/23) Alcoholic hepatitis without ascites (10/07/23) Unspecified cirrhosis of liver (10/07/23) Alcohol induced acute pancreatitis without necrosis or infection (10/07/23) Other specified diseases of pancreas (10/07/23) Unspecified jaundice (10/07/23) Subjective Subjective Saw patient at bedside this morning. Sitting up comfortably in bed, conversing normally, in no acute distress. Patient was found to have a pancreatic head mass causing some external compression of the common bile duct on MRCP yesterday. Plan is for ERCP either this afternoon or tomorrow for further evaluation. Patient does express some anxiety regarding the upcoming ERCP but otherwise states that he continues to feel improved from admission. Continues to have good energy and appetite. No other new concerns today. Objective Data Objective Data Vital Signs: Vital Signs Temp Pulse Resp BP Pulse Ox O2 Del Method 98.7 F 117 H 16 139/95 H 94 Room Air 10/09/23 09:26 10/09/23 09:26 10/09/23 09:26 10/09/23 09:26 10/09/23 09:26 10/09/23 09:26 Oxygen Delivery Method Room Air Weight: 96.2 kg Body Mass Index (BMI) 29.5 Intake & Output: Intake and Output for Last 24 Hours 10/07/23 10/08/23 10/09/23 23:59 23:59 23:59 Intake Total 160 / 160 Balance 160 / 160 Lab / Micro Data 10/09/23 08:05 10/09/23 08:05 Labs: Laboratory Results - last 24 hr 10/07/23 18:50: Hepatitis A IgM Ab Negative, Hep Bs Antigen Negative 10/07/23 18:50: Hep Bs Antigen Non-Reactive, Hep Bs Antibody Reactive, Hep B Core IgM Ab Negative, Hepatitis C Antibody Non-Reactive, Hepatitis C Ab (EIA) Non Reactive, Hep C Ab Comment Comment, HIV 1&2 Antibody Non-Reactive 10/09/23 08:05: WBC 20.3 H, RBC 2.17 L, Hgb 7.4 L, Hct 22.0 L, MCV 101.4 H, MCH 34.1 H, MCHC 33.6, RDW Std Deviation 50.3 H, RDW Coeff of Jc 13.7, Plt Count 211, MPV 9.5, Sodium 130 L, Potassium 3.4 L, Chloride 95 L, Carbon Dioxide 30.0, Anion Gap 5, BUN 9, Creatinine 0.62 L, Estim Creat Clear Calc 194.91, Est GFR (MDRD) Af Amer 188, Est GFR (MDRD) Non-Af 156, BUN/Creatinine Ratio 14.6, Glucose 94, Calcium 8.7, Total Bilirubin 9.00 H, AST 153 H, ALT 65 H, Alkaline Phosphatase 240 H, Total Protein 7.6, Albumin 1.8 L, Globulin 5.8 H, Albumin/Globulin Ratio 0.3 L Micro: Microbiology 10/08/23 02:20 Urine, Clean Catch Urine Culture - Preliminary Culture exhibits no growth. Physical Exam Const alert, oriented x3, no apparent distress and average body habitus Constitutional Narrative: Pleasant younger male, jaundiced, somewhat disheveled appearing, otherwise sitting up comfortably in bed, conversing normally, in no acute distress. Stable. General Appearance: cooperative and comfortable HEENT normocephalic, head/scalp atraumatic, hearing grossly normal bilaterally, nasal mucous membranes and turbinates normal and moist oral mucous membranes Eyes PERRL and EOMs intact bilaterally Eyes Narrative: Scleral icterus noted. Neck full ROM Chest inspection of chest normal Resp normal respiratory effort, normal air movement, no use of accessory muscles and clear to auscultation bilaterally Cardio no murmurs and peripheral pulses 2+ throughout Cardio Narrative: Tachycardic, regular rhythm. GI normal to inspection, nondistended, normoactive bowel sounds, soft to palpation, non-tender and non-distended Back/Spine normal ROM Extremity normal to inspection, full ROM and no pedal edema Skin Skin Narrative: Whole-body jaundice noted. Spider angiomata present. Stable. Neuro moves all extremities and no focal motor deficits Speech: speech normal Psych mental status grossly normal Assessment & Plan Assessment/Plan (1) Alcoholic hepatitis: (2) Mass of head of pancreas: (3) Acute hyponatremia: (4) Anemia: PLAN: Plan Patient is a 37-year-old male who presented to [facility] ED on 10/07/2023 with new onset jaundice. 1. Acute alcoholic hepatitis with suspected underlying cirrhosis ? GI following. Labs, imaging and presentation all consistent with alcoholic hepatitis with hepatosplenomegaly. Concern for underlying cirrhosis given clinical exam (spider angiomas), hypoalbuminemia and coagulopathy. Maddrey's score of 37 on admit. Continue prednisone 40 mg daily. LFTs improving and patient clinically improving on steroids. Continue to monitor daily liver labs and coagulopathy labs. Hepatitis panel negative, other GI labs pending. Will eventually need upper endoscopy for screening for varices. 2. Acute pancreatitis on imaging with pancreatic head lesion ? GI following as above. Pancreatic head lesion with common bile duct dilation, as well as findings consistent with acute pancreatitis noted on CT abdomen pelvis. Notably did not meet pancreatitis criteria as lipase was normal and patient had no abdominal pain. MRCP 10/07 showed mild narrowing of the distal common bile duct in the head of pancreas consistent with extrinsic compression from a pancreatic head mass. Planning for ERCP either today or tomorrow. Appreciate further GI recommendations. 3. Alcohol abuse ? Was drinking 1/5 of alcohol daily prior to admission. Several year history of heavy drinking, no history of significant alcohol withdrawal per patient. Quit drinking about 4 days prior to hospitalization as his p.o. intake was severely limited by worsening alcohol hepatitis. No alcohol withdrawal symptoms to this point, [facility] protocol not necessary at this time. Strongly encouraged alcohol cessation on discharge. Continue folate and thiamine. Case management following. 4. Macrocytic anemia ? Hemoglobin 8.4 on admit, decreased to 7.7 on hospital day 2. Repeat hemoglobin 7.4 on hospital day 3. Baseline unknown. MCV around 100. Iron studies consistent with anemia of chronic disease. B12 level normal, folate borderline low. Continue folate as above. Monitor CBC daily. 5. Hyponatremia, stable ? Sodium 129 on admit, up to 130 on hospital day 2. Baseline unknown. Suspect primarily due to poor p.o. intake with possibly some degree of beer potomania. Most recent sodium 130 on 10/08, stable. Monitor daily sodium. 6. Hypoalbuminemia, malnutrition ruled out ? Albumin 1.6 on admit. Nutrition evaluated, did not meet criteria for malnutrition. Will supplement meals with Ensure plus high-protein per nutrition recommendations. 7. Hypokalemia, resolved ? Potassium 3.1 on admit, improved with repletion. 8. Elevated blood pressures, improved ? Elevated blood pressures on admit with no known diagnosis of hypertension. Blood pressures now stable in normotensive range, no need for antihypertensive medication. 9. Tobacco abuse ? Smokes 1 pack of cigarettes per day. Nicotine patch provided per patient request. Encouraged cessation on discharge. DVT prophylaxis: Heparin subcu CODE STATUS: Full code, verified Expected disposition: Home, 1 to 2 days Total clinical time spent by myself addressing the patient's medical issues, reviewing all the data, and collaborating with patient's care team: 35 minutes. Charges/Coding Visit Charges Inpatient E&M: 17662 Subs Hosp L2
--- NOTE | 2023-10-09 14:25 | PCM.PRE.AN2 ---
ASA Classification* ASA Classification ASA Classification: 3 Assessment & Plan Anesthesia* Anesthesia Assessment Anesthesia Assessment: Discussed sedation and/or anesthesia options, risks, benefits, and alternatives with patient/parents/legal guardian/POA. Questions invited. The patient/parents/legal guardian/POA seems to understand and agrees to proceed with anesthesia plan. Reviewed the physical assessment, medical history, allergy history and patient home medications list prior to surgery/procedure/anesthetic and documented any changes. Performed airway and anesthesia risk assessments. Anesthesia Type Anesthesia Type: General History Source History Obtained from:: Patient and Chart Anesthesia Focused Assessment* Temperature: 98.7 F Pulse Rate: 117 Blood Pressure: 139/95 Respiratory Rate: 16 Pulse Ox: 94 Oxygen Delivery Method: Room Air Airway Assessment Mouth opens: >3 cm Mallampati Score: IV Teeth Condition: Chipped/Broken (#9 and #10 are bonded.) and Missing (Missing right upper molar.) Neck Range of motion (ROM): Full ROM Focused Labs Anesthesia Preop lab: CBC WBC 20.3 K/mm3 (4.4-11.0) H 10/09/23 08:05 RBC 2.17 M/mm3 (4.6-6.2) L 10/09/23 08:05 Hgb 7.4 g/dL (13.0-16.5) L 10/09/23 08:05 Hct 22.0 % (40-54) L 10/09/23 08:05 Plt Count 211 K/mm3 (150-450) 10/09/23 08:05 CHEMISTRY Potassium 3.4 mmol/L (3.5-5.1) L 10/09/23 08:05 Sodium 130 mmol/L (136-145) L 10/09/23 08:05 Magnesium 2.4 mg/dL (1.6-2.6) 10/08/23 05:00 Phosphorus 4.0 mg/dL (2.5-4.9) 10/08/23 05:00 BUN 9 mg/dL (7-18) 10/09/23 08:05 Creatinine 0.62 mg/dL (0.70-1.30) L 10/09/23 08:05 Glucose 94 mg/dL (74-106) 10/09/23 08:05 TSH 1.18 uIU/mL (0.358-3.74) 10/08/23 05:00 COAG PT 19.4 SECONDS (11.7-14.9) H 10/08/23 05:00 Pre-Assessment Diagnosis/Proposed Procedure Planned Operative Procedure(s): ERCP. 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 When Was Last Pacemaker Check QUESTION #4 FULL TEXT: You/Your Family Experience fever (hyperthermia) with Anesthesia Last Oral Intake Last Oral intake: Last Oral Intake NPO since Meds taken in AM with sips of water? Meds patient instructed to take am of surgery Any additional information?: Yes NPO since: 08:00 (Patient had breakfast at 8 AM.) PONV PONV - cutting machine operator helper: PONV - cutting machine operator helper Female HX of Motion Sickness HX of N/V After Surgery Non-Smoker Duration of Surgery greater than 60 minutes Number of Risk Factors PONV Score Height & Weight Height & Weight: Anesthesia: Height & Weight Height 5 ft 11 in 10/08/23 13:14 Weight: 96.2 kg 10/09/23 05:14 Body Mass Index (BMI) 29.5 10/09/23 05:14 Respiratory Assessment Respiratory Assessment - cutting machine operator helper: Respiratory Tract Infection Hx - cutting machine operator helper Hx Respiratory Tract Infection Any additional information?: Yes Hx Respiratory Tract Infection: No STOP Sleep Apnea STOP Sleep Apnea - cutting machine operator helper: STOP Sleep Apnea - cutting machine operator helper Hx Hypertension No 10/07/23 18:28 Hx Sleep Apnea No 10/07/23 18:28 CPAP BIPAP Do you snore loudly (louder No 10/07/23 18:28 than talking or can be heard Do you often feel tired/ No 10/07/23 18:28 fatigued/ sleepy during daytime? Has anyone observed you stop No 10/07/23 18:28 breathing during sleep? STOP Results Negative 10/07/23 18:28 QUESTION #5 FULL TEXT : Do you snore loudly (louder than talking or can be heard through closed doors)? 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 Specify any problems Hx of Preganancy in last 3 N/A 10/07/23 18:28 Months Nurse Filling Out Transfusion KLACOSTE 10/07/23 18:28 & Questions: Date: 10/07/23 10/07/23 18:28 Time: 18:32 10/07/23 18:28 Patient unable to answer at this time (ie. confused, unrespo /Reproduction History /Reproductive History - cutting machine operator helper: /Reproductive Hx- cutting machine operator helper Hx Now Gestational Age (in weeks): EDC: Hx Hx Para Hx Section SAB Active Medications Active Medications: Current Medications Generic Name Dose Route Start Last Admin Trade Name Freq PRN Reason Stop Dose Admin Albuterol Sulfate 2.5 mg 10/07/23 18:28 Albuterol 2.5 Mg/3 Ml Vial.Neb. INHALATION Q2H PRN PRN SOB &/OR WHEEZING Folic Acid 2 mg 10/08/23 17:00 10/09/23 09:32 Folic Acid 1 Mg Tablet PO Not Given BIDCM VIVIANE Glucagon 1 mg 10/07/23 18:28 Glucagon 1 Mg/Ml Syringe IM X1 PRN HYPOGLYCEMIA Protocol Heparin Sodium (Porcine) 5,000 unit 10/07/23 22:00 10/09/23 11:27 Heparin Injection (Vial) 5,000 Unit/Ml Vial SC Not Given Q12 VIVIANE Dextrose 250 mls @ 999 mls/hr 10/07/23 18:28 Dextrose 10%-Water IV .Q16M PRN HYPOGLYCEMIA Protocol Sodium Chloride 250 mls @ 15 mls/hr 10/07/23 18:36 IV .[id number] PRN Additional IVPB Infusion Sodium Chloride 250 mls @ 15 mls/hr 10/07/23 18:36 IV .[id number] PRN Saline Flush Magnesium Hydroxide 30 ml 10/07/23 18:28 Magnesium Hydroxide 30 Ml Udc PO DAILY PRN PRN Constipation Nicotine 14 mg 10/08/23 14:55 10/09/23 11:27 Nicotine 14 Mg Patch TD Not Given DAILY VIVIANE Prednisone 40 mg 10/08/23 08:00 10/09/23 09:31 Prednisone 20 Mg Tablet PO 40 mg BREAKFAST VIVIANE Administration Senna 1 tablet 10/09/23 12:55 Senna Tablet PO BID VIVIANE Sodium Chloride 10 - 40 ml 10/07/23 18:36 0.9% Saline Lock 10 Ml Syringe IV UD PRN SALINE FLUSH Thiamine HCl 100 mg 10/08/23 13:05 10/09/23 09:32 Thiamine Hydrochloride 100 Mg Tablet PO Not Given BREAKFAST VIVIANE PFSH Medical History Alcohol abuse Chronic pain Pancreatitis Medical History no medical history Home Medications ?Medication ?Instructions ?Recorded ?Last Taken ?Type artifi.tears(hypromellose)(PF) 1.7 1 drp EACH EYE BID PRN dry eye(s) 10/07/23 Unknown History % eye drops with applicator Allergy/AdvReac Type Severity Reaction Status Date / Time No Known Allergies Allergy Verified 10/07/23 13:45 Family History no significant family his Surgical History (Updated 10/09/23 @ 14:[address] Nadir Colón MD) History of placement of ear tubes Surgical History no surgical history Social History Smoking Status: Current every day smoker tobacco type: cigarettes Review of Systems (Anesthesia) ROS Narrative System reviewed and no additional complaints, except as documented.
[2023-10-09 15:08] LABS: Anti-Centromere B Ab <0.2 AI (0.0-0.9); Anti-Chromatin <0.2 AI (0.0-0.9); Anti-Jo <0.2 AI (0.0-0.9); Anti-Scleroderma-70 AB <0.2 AI (0.0-0.9); Anti-dsDNA Ab 1 IU/mL (0-9); RNP Ab 0.2 AI (0.0-0.9); SJOGREN'S Anti-SS-A test < 0.2 AI (0.0-0.9); SJOGREN'S Anti-SS-B test < 0.2 AI (0.0-0.9); Smith Ab <0.2 AI (0.0-0.9)
--- NOTE | 2023-10-09 15:15 | TISS_PTH ---
PATIENT: JAVIER LANTIGUA LOC: [facility] U#:[id number] AGE/SX: 37/M ROOM: [facility] RE10/07/[address]: Dr. Naeem Pino DO : 1985 BED: 1 DIS: 10/10/2023 SPEC #: [id number] RECD: 10/10/23 10:20 STATUS: ANJEL REQ #: [id number] WILLY: 10/09/23 15:[address]: Raphael Watters DEPT: SURGICAL PATHOLOGY RECD BY: Kb Somers ENTERED: 10/10/23 10:21 SP TYPE: Tissue Bx OTHR DR: DO Dr. Dudley Yarbrough MD No Primary Care Phys Tissues: Bile duct, NOS Procedures: Surgery Specimen Level III Comments: @ Ordering doctor for SUIII edited from to @ melva KEITA at 10/10/23 1022 @ Submitting doctor edited from to @ by BOSSMAN at 10/10/23 1022 HEADER OPERATION: Pancreatic stent, sphincterotomy, biliary brushings PRE-OP DIAGNOSIS: Pancreatitis TISSUE SUBMITTED: Biliary stricture SPY bite biopsy MICROSCOPIC DIAGNOSIS Biliary stricture spybite, biopsy: Negative for malignancy. See comment. DANN/ 10/11/2023 COMMENT Clinical correlation and appropriate follow up are necessary. MICROSCOPIC DESCRIPTION Slides are reviewed. GROSS DESCRIPTION Received in fixative is one container labeled with the patient's name and designated Biliary stricture spy bite biopsy. The specimen consists of multiple fragments 0.5 x 0.1 x 0.1cm. The entire specimen is submitted in one cassette. DANN/ 10/10/2023 TC:5 CPT:28645
--- NOTE | 2023-10-09 15:15 | FLU_PTH ---
PATIENT: JAVIER LANTIGUA LOC: [facility] U#:[id number] AGE/SX: 37/M ROOM: [facility] RE10/07/[address]: Dr. Naeem Pino DO : 1985 BED: 1 DIS: 10/10/2023 SPEC #: [id number] RECD: 10/09/23 18:01 STATUS: ANJEL REEdita #: [id number] WILLY: 10/09/23 15:[address]: Raphael Watters DEPT: CYTOLOGY RECD BY: Kb Somers ENTERED: 10/10/23 08:47 SP TYPE: Fluid OTHR DR: DO Dr. Dudley Yarbrough MD No Primary Care Phys Tissues: A - Bile duct, NOS B - Bile duct, NOS Procedures: Special Stain Group II Surgery Specimen Level III Surgery Specimen Level IV Cytospin Fluid HEADER OPERATION: Pancreatic stent, sphincterotomy, biliary brushings PRE-OP DIAGNOSIS: Panceratisis TISSUE SUBMITTED: A- Biliary stricture brushings, B-Biliary stricture slides DIAGNOSIS CYTOLOGY A. Biliary stricture brushings fluid (cytospin and cellblock): Mildly atypical cells noted, favor reactive. B. Biliary stricture brushings (smears): Negative for malignant cells. See comment. DANN/ 10/11/2023 COMMENT B. Please make reference to additional specimen [id number] biliary stricture spybite biopsy with diagnosis of negative for malignant cells. Clinical correlation and appropriate follow up are necessary. CYTOLOGY STUDY Slides are reviewed. CYTOLOGY GROSS A. Received is one brush tip with 0.5 ml of light yellow fluid labeled with the patient's name and and designated per the requisition as Biliary stricture brushing. Submitted for cytology preparation including cell block. B. Received are 3 smears labeled with the patient's name and designated per the requisition as Biliary stricture brushing. Submitted for staining. Mr 10/10/2023 TC:5 CPT: 61376,41809,18033
--- NOTE | 2023-10-09 16:30 | RAD_ITS ---
EXAM: FL FLUOROSCOPY < 1 HOUR CLINICAL INDICATION: ERCP WITH SPYGLASS TECHNIQUE: Fluoroscopic images performed in multiple projections. Fluoroscopic guidance was provided by a physician. 20 images, 152.3 seconds, 95.54 mGy. COMPARISON: MRCP, 10/08/2023. FINDINGS AND RAD/ERCP Biliary/Pancreas IMPRESSION: Intraoperative images related to ERCP utilized and documented by the operative team in the operative note. Electronically Signed: Shady Navarrete DO at 20:40 EDT ,
[2023-10-09] MEDS: Lactated Ringers 1,000 ML 15 ML IV (17:45)
--- NOTE | 2023-10-09 17:54 | OP.CCLET_ITS ---
10/09/2023 No Primary Care Physician Re : ERCP procedure for Jose Alberto Lucas [facility] Physician This procedure was performed on Monday, October 09, 2023. My impressions and recommendations are as follows: Impressions : - Sludge was found. - Multiple localized biliary strictures were found in the lower third of the main bile duct. The strictures were indeterminate. - The entire main bile duct was dilated, uncertain etiology. - Choledocholithiasis was found. Complete removal was accomplished by biliary sphincterotomy and balloon extraction. - A biliary sphincterotomy was performed. - The biliary tree was swept. - Common bile duct was successfully dilated. - The left main hepatic duct was successfully dilated. - Cells for cytology obtained in the lower third of the main duct. - Biopsy was performed in the lower third of the main duct. - One temporary stent was placed into the common bile duct. - A pancreatic sphincterotomy was performed. - The ventral pancreatic duct was swept and nothing was found. - One temporary stent was placed into the common bile duct. Recommendations : My findings are described in the full procedure note, which is enclosed. If I can be of further assistance, please feel free to contact me at . Sincerely, Raphael Watters, 10/09/2023 5:53:54 PM This report has been signed electronically.
--- NOTE | 2023-10-09 17:54 | OP.ERCP_ITS ---
Patient Name: Jose Alberto Lucas Procedure Date: 10/09/2023 3:27 PM Date of : 1985 Age: 37 Procedure: ERCP Indications: Jaundice, Tumor of the head of pancreas Providers: Raphael Watters DO Medicines: Monitored Anesthesia Care Patient Profile: This is a 37 year old male. Refer to note in patient chart for documentation of history and physical. Patient has symptoms of acute jaundice. This patient has no history of previous ERCP. This patient has no history of surgical alteration of the upper digestive tract anatomy. Complications: No immediate complications. Procedure: Pre-Anesthesia Assessment: - Prior to the procedure, a History and Physical was performed, and patient medications and allergies were reviewed. The patient is competent. The risks and benefits of the procedure and the sedation options and risks were discussed with the patient. All questions were answered and informed consent was obtained. Patient identification and proposed procedure were verified by the physician in the pre-procedure area. Mental Status Examination: alert and oriented. Airway Examination: normal oropharyngeal airway and neck mobility. Respiratory Examination: clear to auscultation. CV Examination: normal. Prophylactic Antibiotics: The patient does not require prophylactic antibiotics. Prior Anticoagulants: The patient has taken no anticoagulant or antiplatelet agents. ASA Grade Assessment: III - A patient with severe systemic disease. After reviewing the risks and benefits, the patient was deemed in satisfactory condition to undergo the procedure. The anesthesia plan was to use general anesthesia. Immediately prior to administration of medications, the patient was re-assessed for adequacy to receive sedatives. The heart rate, respiratory rate, oxygen saturations, blood pressure, adequacy of pulmonary ventilation, and response to care were monitored throughout the procedure. The physical status of the patient was re-assessed after the procedure. After obtaining informed consent, the scope was passed under direct vision. Throughout the procedure, the patient's blood pressure, pulse, and oxygen saturations were monitored continuously. The Duodenoscope was introduced through the mouth, and advanced to the duodenum and used for direct visualization of the bile duct and ventral pancreatic duct. The ERCP was accomplished without difficulty. The patient tolerated the procedure well. Scope In: 4:12:06 PM Scope Out: 5:40:24 PM Total Procedure Duration Time 1 hour 28 minutes 18 seconds Findings: The psychology physician film was normal. The esophagus was successfully intubated under direct vision. The scope was advanced to a normal major papilla in the descending duodenum without detailed examination of the pharynx, larynx and associated structures, and upper GI tract. The upper GI tract was grossly normal. The bile duct was deeply cannulated with the short-nosed traction sphincterotome. Contrast was injected. I personally interpreted the bile duct and pancreatic duct images. There was brisk flow of contrast through the ducts. Image quality was adequate. Contrast extended to the entire biliary tree. Contrast extended to the pancreatic duct. The main bile duct was locally dilated, uncertain etiology. The largest diameter was 8 mm. A straight Roadrunner wire was passed into the biliary tree. A 5 mm biliary sphincterotomy was made with a traction (standard) sphincterotome using ERBE electrocautery. The sphincterotomy oozed blood. The biliary tree was swept with a 12 mm balloon starting at the bifurcation. Sludge was swept from the duct. All stones were removed. Dilation of the common bile duct with a 6-7-8 mm balloon dilator was successful. Dilation of the left main hepatic duct with 5-7-8.5 Fr catheter dilator was successful. Cells for cytology were obtained by brushing in the lower third of the main bile duct. The bile duct was explored endoscopically using the SpSil[employer] Navigator Corporationlass direct visualization system. The SpyScope was advanced to the bifurcation. Visibility with the scope was excellent. Bile, blood and sludge were found in the lower third of the main bile duct. The bile duct was explored endoscopically using the cholangioscope. The lower third of the main bile duct contained multiple localized stenoses 6 mm in length. The lower third of the main bile duct was biopsied with a Studio Moderna miniature biopsy forceps for histology. One 10 Fr by 7 cm temporary stent was placed 5 cm into the common bile duct. Bile flowed through the stent. The stent was in good position. The ventral pancreatic duct was deeply cannulated with the short-nosed traction sphincterotome. Contrast was injected. Opacification of the entire pancreatic ductal system was successful. The maximum diameter of the ducts was 3 mm. The entire opacified area was normal. A 0.035 inch x 260 cm angled Hydra Jagwire was passed into the ventral pancreatic duct. A 5 mm ventral pancreatic sphincterotomy was made with a monofilament traction (standard) sphincterotome using ERBE electrocautery. There was no post-sphincterotomy bleeding. To find object(s) the ventral pancreatic duct was swept with a 6 mm balloon starting at the pancreatic duct in the body of the pancreas. Nothing was found. One 5 Fr by 7 cm temporary stent was placed 5 cm into the common bile duct. Clear fluid flowed through the stent. The stent was in good position. Impression: - Sludge was found. - Multiple localized biliary strictures were found in the lower third of the main bile duct. The strictures were indeterminate. - The entire main bile duct was dilated, uncertain etiology. - Choledocholithiasis was found. Complete removal was accomplished by biliary sphincterotomy and balloon extraction. - A biliary sphincterotomy was performed. - The biliary tree was swept. - Common bile duct was successfully dilated. - The left main hepatic duct was successfully dilated. - Cells for cytology obtained in the lower third of the main duct. - Biopsy was performed in the lower third of the main duct. - One temporary stent was placed into the common bile duct. - A pancreatic sphincterotomy was performed. - The ventral pancreatic duct was swept and nothing was found. - One temporary stent was placed into the common bile duct. Procedure Code(s): --- Professional --- 70489, Endoscopic retrograde cholangiopancreatography (ERCP); with placement of endoscopic stent into biliary or pancreatic duct, including pre- and post-dilation and guide wire passage, when performed, including sphincterotomy, when performed, each stent 88549, 59, Endoscopic retrograde cholangiopancreatography (ERCP); with placement of endoscopic stent into biliary or pancreatic duct, including pre- and post-dilation and guide wire passage, when performed, including sphincterotomy, when performed, each stent 42137, Endoscopic retrograde cholangiopancreatography (ERCP); with removal of calculi/debris from biliary/pancreatic duct(s) 69008, 59,51, Endoscopic retrograde cholangiopancreatography (ERCP); with sphincterotomy/papillotomy 92450, 59, Endoscopic retrograde cholangiopancreatography (ERCP); with biopsy, single or multiple 30260, Endoscopic cannulation of papilla with direct visualization of pancreatic/common bile duct(s) (List separately in addition to code(s) for primary procedure) 14707, 26, Combined endoscopic catheterization of the biliary and pancreatic ductal systems, radiological supervision and interpretation 71607, Unlisted procedure, biliary tract CPT copyright 2021 [employer]. All rights reserved. The codes documented in this report are preliminary and upon barrel drum cutter review may be revised to meet current compliance requirements. Raphael Watters DO 10/09/2023 5:53:54 PM This report has been signed electronically. Number of Addenda: 0 Note Initiated On: 10/09/2023 3:27 PM
--- NOTE | 2023-10-09 18:00 | PCM.POST.ANE ---
Anesthesia: Postop Eval I Current Vital Signs Temperature: 98 F Pulse Rate: 110 Blood Pressure: 151/88 Respiratory Rate: 22 Pulse Ox: 93 Oxygen Delivery Method: Room Air Assessment Airway patent: Yes Spontaneous unlabored respirations: Yes Mental status: Awake nausea: No Vomiting: No Anesthesia Complication: No Fluid Hydration Crystalloid volume administer (ml): 1,000 Total IV fluid infused: 1,000 Progress Note Anesthesia document: Postop Eval 1 completed: Yes
[2023-10-09] MEDS: Heparin Injection (Vial) 5,000 UNIT/ML VIAL 5000 UNIT SC (21:46)
[2023-10-09] MEDS: Senna Tablet 1 TABLET PO (21:46)
[2023-10-09] MEDS: Polyethylene Glycol 3350 17 GM PACKET PO (21:46)
[2023-10-10 03:14] VITALS: BP 118/68; PULSE 97; RESP 18; TEMP 36.7; O2SAT 93
[2023-10-10 05:32] VITALS: BMI 30.9
[2023-10-10 06:01] LABS: Hemoglobin 7.3 g/dL (13.0-16.5); Mean Corp Hgb Conc 33.2 g/dL (32-36); Mean Corpuscular Hgb 34.1 pg (27.0-32.0); Mean Corpuscular Volume 102.8 fL (80-94); Mean Platelet Vol. 9.4 fl (6.2-12.0); Platelet Count 207 K/mm3 (150-450); RBC Distribution Width CV 13.9 % (11.6-14.6); RBC Distribution Width SD 51.4 fl (35.1-43.9); Red Blood Count 2.14 M/mm3 (4.6-6.2); White Blood Count 18.2 K/mm3 (4.4-11.0)
[2023-10-10 06:25] LABS: ALB/GLOB Ratio 0.3 RATIO (0.9-2.4); AST(SGOT) 182 U/L (15-37); Alanine Aminotransfer ALT/SGPT 76 U/L (16-61); Albumin, Serum 1.6 g/dL (3.2-5.0); Alkaline Phosphatase 207 U/L (45-117); Anion Gap 6 (5-15); BUN 16 mg/dL (7-18); BUN/Creat Ratio 26.4 RATIO (10-20); Calcium,Total 8.2 mg/dL (8.5-10.1); Chloride 97 mmol/L (98-107); EST Glomerular Filtration Rate 160 mL/min (>60); Est Glom Filt Rate - Afr Amer 193 mL/min (>60); Estimated Creatinine Clearance 205.54 ml/min; Globulin 5.6 g/dL (2.2-4.2); Glucose 125 mg/dL (74-106); Potassium 3.7 mmol/L (3.5-5.1); Protein, Total 7.2 g/dL (6.4-8.2); Sodium Level 129 mmol/L (136-145)
[2023-10-10 08:12] VITALS: BP 117/51; PULSE 103; RESP 12; TEMP 36.6; O2SAT 92
[2023-10-10] MEDS: Folic Acid 1 MG Tablet 2 MG PO (08:16)
[2023-10-10] MEDS: Thiamine Hydrochloride 100 MG Tablet PO (08:17)
[2023-10-10] MEDS: predniSONE 20 MG Tablet 40 MG PO (08:17)
[2023-10-10] MEDS: Senna Tablet 1 TABLET PO (08:17)
[2023-10-10 08:37] LABS: International Normalized Ratio 1.7; Prothrombin Time (Protime)PT. 19.4 SECONDS (11.7-14.9)
[2023-10-10] MEDS: Phytonadione (Vit K) 5 MG in 0.9% Normal Saline (50mL Bag) 50 ML 150 MG IV (10:34)
--- NOTE | 2023-10-10 11:04 | CM.UR ---
Addendum entered by Sharon Barnett 10/10/23 14:59: Patient will be discharging on prednisone. IVÁN CASTILLO called [facility], cost is $9.31. RN CM updated patient and mother, mother states they can afford medication. Patient denied further needs or help at discharge. Patient had no further questions or concerns Original Note: IVÁN CASTILLO received resource from Addiction Medicine. IVÁN CASTILLO in to patient's room to provide resources out of courtesy, patient and mother voiced appreciation. Mother voiced concern regarding medication cost at discharge. IVÁN CM to perez check meds and updated patient and mother. Depending on cost, may benefit from RX gregorio, will monitor.
--- NOTE | 2023-10-10 11:53 | PN.HOSP_ITS ---
Reason for Visit Reason for Visit: Diagnoses Anemia, unspecified (10/07/23) Hypo-osmolality and hyponatremia (10/07/23) Alcoholic hepatitis without ascites (10/07/23) Unspecified cirrhosis of liver (10/07/23) Alcohol induced acute pancreatitis without necrosis or infection (10/07/23) Other specified diseases of pancreas (10/07/23) Unspecified jaundice (10/07/23) Objective Data Objective Data Vital Signs: Vital Signs Temp Pulse Resp BP Pulse Ox O2 Del Method O2 Flow Rate 97.8 F 103 H 12 117/51 L 92 Room Air 2 10/10/23 08:12 10/10/23 08:12 10/10/23 08:12 10/10/23 08:12 10/10/23 08:12 10/10/23 08:25 10/09/23 18:20 Oxygen Flow Rate (L/min) 2 Oxygen Delivery Method Room Air Weight: 100.5 kg Body Mass Index (BMI) 30.9 Intake & Output: Intake and Output for Last 24 Hours 10/08/23 10/09/23 10/10/23 23:59 23:59 23:59 Intake Total 50.5 / 50.5 Output Total 0 / 0 Balance 0 / 0 50.5 / 50.5 Lab / Micro Data 10/10/23 05:36 10/10/23 05:36 Labs: Laboratory Results - last 24 hr 10/07/23 18:50: CARMEN-1 Antibody <0.2, SS-A/Ro IgG Antibody < 0.2, SS-B/La IgG Antibody < 0.2, Sm (Elise) Antibody <0.2, EXPERIMENTAL ROCKETSLED MECHANIC Antibody 0.2, Scl-70 Scleroderma Ab <0.2, Double Strand DNA Ab 1, Centromere B Antibody <0.2 10/10/23 05:36: WBC 18.2 H, RBC 2.14 L, Hgb 7.3 L, Hct 22.0 L, MCV 102.8 H, MCH 34.1 H, MCHC 33.2, RDW Std Deviation 51.4 H, RDW Coeff of Jc 13.9, Plt Count 207, MPV 9.4, Sodium 129 L, Potassium 3.7, Chloride 97 L, Carbon Dioxide 26.0, Anion Gap 6, BUN 16, Creatinine 0.60 L, Estim Creat Clear Calc 205.54, Est GFR (MDRD) Af Amer 193, Est GFR (MDRD) Non-Af 160, BUN/Creatinine Ratio 26.4 H, G lucose 125 H, Calcium 8.2 L, Total Bilirubin 7.70 H, AST 182 H, ALT 76 H, A lkaline Phosphatase 207 H, Total Protein 7.2, Albumin 1.6 L, Globulin 5.6 H, A lbumin/Globulin Ratio 0.3 L 10/10/23 08:03: PT 19.4 H, INR 1.7 Micro: Microbiology 10/08/23 02:20 Urine, Clean Catch Urine Culture - Final Culture exhibits no growth. 10/07/23 21:45 Blood Culture (Wb) - Anticubital Left Blood Culture - Preliminary No growth in 48 hours. 10/07/23 18:50 Blood Culture (Wb) - Anticubital Right Blood Culture - Preliminary No growth in 48 hours. 10/07/23 15:50 Blood Culture (Wb) - Left Forearm Blood Culture - Preliminary No growth in 48 hours. 10/07/23 15:50 Blood Culture (Wb) - Anticubital Left Blood Culture - Preliminary No growth in 48 hours. Radiography Diagnostic Testing: Radiology Impression Endo Retro Cholangiopancreatogram 10/09/23 16:30 IMPRESSION: Intraoperative images related to ERCP utilized and documented by the operative team in the operative note. Electronically Signed: Shady Navarrete DO at 20:40 EDT ,
[2023-10-10] MEDS: Magnesium Hydroxide 30 ML UDC PO (12:13)
--- NOTE | 2023-10-10 13:05 | DCINST_ITS ---
Discharge Instructions Follow Up Care Test Results: Test results from this visit will be discussed in further detail at your follow- up appointment, if applicable. Discharge Plan Admission Admit Date/Time: 10/07/23 17:45 Attending Provider: Naeem Pino Primary Care Provider: Care Physician,No Primary Consulting Providers: Dudley Montalvo Discharge Orders/Prescriptions Prescriptions: No Action artifi.tears(hypromellose)(PF) 1.7 % drops with applicator 1 drp EACH EYE BID PRN (Reason: dry eye(s)) Referrals / Follow Up: Care Physician,No Primary [Primary Care Provider] -
--- NOTE | 2023-10-10 13:05 | PCM.DC.SUM ---
Providers Date of Admission: 10/07/23 Date of Discharge: 10/10/23 Primary Care Physician: No Primary Care Phys Reason For Visit: JAUNDICE Diagnosis Discharge Diagnosis (1) Alcoholic hepatitis: Status: Acute Code(s): K70.10 - Alcoholic hepatitis without ascites (2) Mass of head of pancreas: Status: Acute Code(s): K86.89 - Other specified diseases of pancreas (3) Acute hyponatremia: Status: Acute Code(s): E87.1 - Hypo-osmolality and hyponatremia (4) Anemia: Status: Acute Code(s): D64.9 - Anemia, unspecified Medications at Discharge Home Medications artifi.tears(hypromellose)(PF) 1.7 % eye drops with applicator 1 drp EACH EYE BID PRN dry eye(s) 10/07/23 prednisone 10 mg tablet See Taper PO DAILY #82 tabs 10/10/23 Hospital Course Operations ERCP Procedures - (CT abdomen pelvis, MRCP) Summary of Care Provided Minutes Spent on Discharge: 45 Hospital Course: Patient is a 37-year-old male who presented to [facility] ED on 10/07/2023 with new onset jaundice. Hospital course as noted below. Patient discharged home in stable condition on 10/09. 1. Acute alcoholic hepatitis with suspected underlying cirrhosis ? GI followed. Labs, imaging and presentation all consistent with alcoholic hepatitis with hepatosplenomegaly. Notably, choledocholithiasis also contributing to significantly elevated LFTs. High concern for underlying cirrhosis given clinical exam (spider angiomas), hypoalbuminemia and coagulopathy. Maddrey's score of 37 on admit. Treated with prednisone 40 mg daily during hospitalization with both significant improvement clinically and improvement in LFTs. Per GI recommendation, will continue prednisone 40 mg daily for another 10 days on discharge, followed by prednisone taper. Patient will need close outpatient follow-up with GI and eventually will need upper endoscopy for screening for varices. 2. Acute pancreatitis on imaging with pancreatic head lesion ? GI followed as above. Pancreatic head lesion with common bile duct dilation, as well as findings consistent with acute pancreatitis noted on CT abdomen pelvis. Notably did not meet pancreatitis criteria as lipase was normal and patient had no abdominal pain. MRCP 10/07 showed mild narrowing of the distal common bile duct in the head of pancreas consistent with extrinsic compression from a pancreatic head mass. ERCP 10/08 with primary findings as noted below; ventral pancreatic duct was swept and nothing was found, and biopsy samples were taken from the lower third of the main duct. Will have close outpatient follow-up with GI regarding biopsy sample results and need for further monitoring. 3. Choledocholithiasis ? GI followed as above. ERCP 10/08 showed choledocholithiasis, multiple localized biliary strictures in the lower third of the main bile duct, and dilated entire main bile duct. Biliary tree was swept, biliary sphincterotomy was performed, common bile duct and left main hepatic duct were successfully dilated, and a temporary stent was placed in the common bile duct. Had very good improvement in LFTs during hospitalization. Close GI follow-up on discharge and will need referral to general surgery for likely cholecystectomy. 4. Alcohol abuse ? Was drinking 1/5 of alcohol daily prior to admission. Several year history of heavy drinking, no history of significant alcohol withdrawal per patient. Quit drinking about 4 days prior to hospitalization as his p.o. intake was severely limited by worsening alcohol hepatitis. No alcohol withdrawal symptoms to this point, CIWA protocol not necessary at this time. Strongly encouraged alcohol cessation on discharge. Treated with folate and thiamine while inpatient. Addiction medicine followed, planning for outpatient follow-up with 180 shortly after discharge. 5. Macrocytic anemia ? Hemoglobin 8.4 on admit, remained stable around 7.5 for remainder of hospitalization. Baseline unknown. MCV around 100. Iron studies consistent with anemia of chronic disease. B12 level normal, folate borderline low. Treated with folate while inpatient as noted above. Recommend repeat CBC in the next 1 to 2 weeks for monitoring of hemoglobin. 6. Hyponatremia, stable ? Sodium 129 on admit, remained stable around 130 for remainder of hospitalization. Baseline unknown. Suspect primarily due to poor p.o. intake with possibly some degree of beer potomania. No further needs at this time. 7. Hypoalbuminemia, malnutrition ruled out ? Albumin 1.6 on admit. Nutrition evaluated, did not meet criteria for malnutrition. Will supplement meals with Ensure plus high-protein per nutrition recommendations. 8. Hypokalemia, resolved ? Potassium 3.1 on admit, improved with repletion. 9. Elevated blood pressures, improved ? Elevated blood pressures on admit with no known diagnosis of hypertension. Blood pressures now stable in normotensive range, no need for antihypertensive medication. 10. Tobacco abuse ? Smokes 1 pack of cigarettes per day. Nicotine patch provided while inpatient per patient request. Encouraged cessation on discharge. Total clinical time spent by myself addressing the patient's medical issues, reviewing all the data, and collaborating with patient's care team: 45 minutes. Physical Exam Const alert, oriented x3, no apparent distress and average body habitus Constitutional Narrative: Pleasant younger male, jaundice improving, somewhat disheveled appearing, otherwise sitting up comfortably in bed, conversing normally, in no acute distress. Stable. General Appearance: cooperative and comfortable HEENT normocephalic, head/scalp atraumatic, hearing grossly normal bilaterally, nasal mucous membranes and turbinates normal and moist oral mucous membranes Eyes PERRL and EOMs intact bilaterally Eyes Narrative: Scleral icterus noted but improving. Neck full ROM Chest inspection of chest normal Resp normal respiratory effort, normal air movement, no use of accessory muscles and clear to auscultation bilaterally Cardio regular rate, regular rhythm, no murmurs and peripheral pulses 2+ throughout GI normal to inspection, nondistended, normoactive bowel sounds, soft to palpation, non-tender and non-distended Back/Spine normal ROM Extremity normal to inspection, full ROM and no pedal edema Skin Skin Narrative: Whole-body jaundice noted, improving. Spider angiomata present. Neuro moves all extremities and no focal motor deficits Speech: speech normal Psych mental status grossly normal Weight / BMI Weight Weight: 100.5 kg Body Mass Index (BMI) 30.9 ABG / Lab / Microbiology Data 10/10/23 05:36 10/10/23 05:36 Laboratory: Laboratory Results - last 24 hr 10/07/23 18:50: CARMEN-1 Antibody <0.2, SS-A/Ro IgG Antibody < 0.2, SS-B/La IgG Antibody < 0.2, Sm (Elise) Antibody <0.2, FIRST LINE PRODUCTION SUPERVISOR Antibody 0.2, Scl-70 Scleroderma Ab <0.2, Double Strand DNA Ab 1, Centromere B Antibody <0.2 10/10/23 05:36: WBC 18.2 H, RBC 2.14 L, Hgb 7.3 L, Hct 22.0 L, MCV 102.8 H, MCH 34.1 H, MCHC 33.2, RDW Std Deviation 51.4 H, RDW Coeff of Jc 13.9, Plt Count 207, MPV 9.4, Sodium 129 L, Potassium 3.7, Chloride 97 L, Carbon Dioxide 26.0, Anion Gap 6, BUN 16, Creatinine 0.60 L, Estim Creat Clear Calc 205.54, Est GFR (MDRD) Af Amer 193, Est GFR (MDRD) Non-Af 160, BUN/Creatinine Ratio 26.4 H, Glucose 125 H, Calcium 8.2 L, Total Bilirubin 7.70 H, AST 182 H, ALT 76 H, Alkaline Phosphatase 207 H, Total Protein 7.2, Albumin 1.6 L, Globulin 5.6 H, Albumin/Globulin Ratio 0.3 L 10/10/23 08:03: PT 19.4 H, INR 1.7 Microbiology: Microbiology 10/08/23 02:20 Urine, Clean Catch Urine Culture - Final Culture exhibits no growth. 10/07/23 21:45 Blood Culture (Wb) - Anticubital Left Blood Culture - Preliminary No growth in 48 hours. 10/07/23 18:50 Blood Culture (Wb) - Anticubital Right Blood Culture - Preliminary No growth in 48 hours. 10/07/23 15:50 Blood Culture (Wb) - Left Forearm Blood Culture - Preliminary No growth in 48 hours. 10/07/23 15:50 Blood Culture (Wb) - Anticubital Left Blood Culture - Preliminary No growth in 48 hours. Radiography Diagnostic Testing: Radiology Impression Endo Retro Cholangiopancreatogram 10/09/23 16:30 IMPRESSION: Intraoperative images related to ERCP utilized and documented by the operative team in the operative note. Electronically Signed: Shady Navarrete DO at 20:40 EDT , Meaningful Use Info Meaningful Use Meaningful Use Diagnoses (Choose all that apply): None applicable Ischemic Stroke Statin Dosing Therapy Reference: STATIN DOSE THERAPY REFERENCE: * Patients > 75 years receive moderate or high dose statin therapy. * Patients 75 years or YOUNGER should receive HIGH intensity statin dose unless contraindicated. You will be required to document reason for non-treatment if statin daily dose does not meet guidelines. HIGH DOSE STATIN THERAPY DAILY Atorvastatin > than or = to 40 mg Rosuvastatin > than or = to 20 mg Amlodipine + Atorvastatin > than or = to 2.5/40 mg Ezetimibe + Simvastatin 10/80 mg Simvastatin 80mg Discharge Plan Admission Admit Date/Time: 10/07/23 17:45 Primary Reason for Your Visit: New onset jaundice Attending Provider: Naeem Pino Primary Care Provider: Care Physician,No Primary Consulting Providers: Dudley Montalvo Instructions Additional Instructions / Restrictions: Please take prednisone taper as noted below. Dr. Watters's office will call you to schedule a follow-up appointment soon. Discharge Orders/Prescriptions Prescriptions: New prednisone 10 mg tablet See Taper PO DAILY Qty: 82 0RF Taper: Prednisone Taper 40 mg WITH BREAKFAST for 10 Days and 0 Hour 30 mg WITH BREAKFAST for 7 Days and 0 Hour 20 mg WITH BREAKFAST for 7 Days and 0 Hour 10 mg WITH BREAKFAST for 7 Days and 0 Hour Continued artifi.tears(hypromellose)(PF) 1.7 % drops with applicator 1 drp EACH EYE BID PRN (Reason: dry eye(s)) Referrals / Follow Up: Care Physician,No Primary [Primary Care Provider] - Disposition Disposition (needs filled in before D/C Order can be placed): Home, Self Care Charges/Coding Visit Charges Inpatient E&M: 02704 Disch Hosp >30min
[2023-10-10 14:16] LABS: International Normalized Ratio 1.6; Prothrombin Time (Protime)PT. 18.9 SECONDS (11.7-14.9)
[2023-10-10 14:18] VITALS: BP 151/88; PULSE 110; RESP 22; TEMP 36.6; O2SAT 93
[2023-10-10 14:45] VITALS: BP 133/77; PULSE 102; RESP 18; TEMP 36.7; O2SAT 92
--- NOTE | 2023-10-10 15:15 | PHA.DC_ITS ---
Pharmacy [facility] has performed discharge medication reconciliation and counseling for this patient. 1. PREDNISONE 40MG PO DAILY X 10 DAYS, 30MG X 7 DAYS, THEN 20MG X 7 DAYS, THEN 10MG X 7 DAYS The patient's discharge medication list was reviewed for discrepancies and discrepancies were resolved. The patient was counseled on the following discharge medications and changes in medications for homegoing were reviewed. The Reason for Use, instructions for use, and potential side effects were reviewed for all new medications. The patient's questions regarding all of their medications were answered. The patient was able to verbally demonstrate an understanding of their discharge medications. Patient counseled by exceptional student education teacher Medications at Discharge Home Medications artifi.tears(hypromellose)(PF) 1.7 % eye drops with applicator 1 drp EACH EYE BI D PRN dry eye(s) 10/07/23 prednisone 10 mg tablet See Taper PO DAILY #82 tabs 10/10/23
[2023-10-11 04:07] LABS: AFP, Tumor Marker 3.2 ng/mL (0.0-6.9); Carbohydrate AG 19-9 150 U/mL (0-35); Carcinoembryonic Antigen 6.3 ng/mL (0.0-4.7)
== END 2023-10-10 15:43 | disposition home or self-care (01) | DRG 445 ==
LOC: ED 14:23 → PCU 17:53
PROVIDERS: Internal Medicine Gastroenterology; Physician Assistant; Admitting Provider Internal Medicine; Emergency Provider Emergency Medicine; Visit Provider Hospitalist
PROC: 0FC98ZZ Extirpation of Matter from Common Bile Duct, Via Natural or Artificial Opening Endoscopic (ICD-10-PCS; CPT 43260; principal; 2023-10-09 14:55)
DX: K80.51 Calculus of bile duct without cholangitis or cholecystitis with obstruction (principal); E87.1 Hypo-osmolality and hyponatremia; D63.8 Anemia in other chronic diseases classified elsewhere; K70.10 Alcoholic hepatitis without ascites; K70.30 Alcoholic cirrhosis of liver without ascites; I10 Essential (primary) hypertension; E88.09 Other disorders of plasma-protein metabolism, not elsewhere classified; D13.6 Benign neoplasm of pancreas; E87.6 Hypokalemia; F10.10 Alcohol abuse, uncomplicated; F17.210 Nicotine dependence, cigarettes, uncomplicated; K86.9 Disease of pancreas, unspecified; R03.0 Elevated blood-pressure reading, without diagnosis of hypertension
CPT/HCPCS: 36415; 74177; 74181; 74330; 76000; 80048; 80053; 80074; 80076; 82105; 82248; 82378; 82607; 82728; 82746; 83540; 83550; 83690; 83735; 84100; 84443; 85025; 85027; 85610; 86225; 86235; 86301; 86703; 86706; 86803; 87040; 87086; 87340; 88108; 88304; 88305; 88313; 97802; 99252; 99283; J7050; J7120; Q9967; A4216; C1726; C1769; G0463; J2405; J3490

== ENCOUNTER 2024-01-03 09:50 | Day surgery (SDC) | payer SELFPAY ==
[2024-01-03] VITALS (8 sets, daily range): BP systolic 108–146; BP diastolic 70–86; PULSE 82–98; RESP 16–18; TEMP 36.2–37.1; O2SAT 96–100; BMI 29.1
--- NOTE | 2024-01-03 10:18 | PRE.ANES_ITS ---
ASA Classification* ASA Classification ASA Classification: 2 Assessment & Plan Anesthesia* Anesthesia Assessment Anesthesia Assessment: Discussed sedation and/or anesthesia options, risks, benefits, and alternatives with patient/parents/legal guardian/POA. Questions invited. The patient/parents/legal guardian/POA seems to understand and agrees to proceed with anesthesia plan. Reviewed the physical assessment, medical history, allergy history and patient home medications list prior to surgery/procedure/anesthetic and documented any changes. Performed airway and anesthesia risk assessments. Anesthesia Type Anesthesia Type: General (see written pre anesthesia record for full assessment) and MAC (see written pre anesthesia record for full assessment) Anesthesia Focused Assessment* Airway Assessment Mouth opens: >3 cm Mallampati Score: II Focused Labs Anesthesia Preop lab: CBC WBC 18.2 K/mm3 (4.4-11.0) H 10/10/23 05:36 RBC 2.14 M/mm3 (4.6-6.2) L 10/10/23 05:36 Hgb 7.3 g/dL (13.0-16.5) L 10/10/23 05:36 Hct 22.0 % (40-54) L 10/10/23 05:36 Plt Count 207 K/mm3 (150-450) 10/10/23 05:36 CHEMISTRY Potassium 3.7 mmol/L (3.5-5.1) 10/10/23 05:36 Sodium 129 mmol/L (136-145) L 10/10/23 05:36 Magnesium 2.4 mg/dL (1.6-2.6) 10/08/23 05:00 Phosphorus 4.0 mg/dL (2.5-4.9) 10/08/23 05:00 BUN 16 mg/dL (7-18) 10/10/23 05:36 Creatinine 0.60 mg/dL (0.70-1.30) L 10/10/23 05:36 Glucose 125 mg/dL (74-106) H 10/10/23 05:36 TSH 1.18 uIU/mL (0.358-3.74) 10/08/23 05:00 COAG PT 18.9 SECONDS (11.7-14.9) H 10/10/23 13:35 Pre-Assessment Diagnosis/Proposed Procedure Planned Operative Procedure(s): ERCP Anesthesia History 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 When Was Last Pacemaker Check QUESTION #4 FULL TEXT: You/Your Family Experience fever (hyperthermia) with Anesthesia Last Oral Intake Last Oral intake: Last Oral Intake NPO since Meds taken in AM with sips of water? 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 Has anyone observed you stop No 01/01/24 12:36 breathing during sleep? STOP Results Negative 01/01/24 12:36 QUESTION #5 FULL TEXT : Do you snore loudly (louder than talking or can be heard through closed doors)? 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 Specify any problems Hx of Preganancy in last 3 N/A 01/01/24 12:36 Months Nurse Filling Out Transfusion [email or web address] 01/01/24 12:36 & Questions: Date: 01/01/24 01/01/24 12:36 Time: 12:38 01/01/24 12:36 Patient unable to answer at this time (ie. 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: /Reproductive Hx- supervisor television chassis repair Hx Now Gestational Age (in weeks): EDC: Hx Hx Para Hx Section SAB Active Medications Active Medications: Current Medications Generic Name Dose Route Start Last Admin Trade Name Freq PRN Reason Stop Dose Admin Lactated Ringer's 1,000 mls @ 15 mls/hr 01/03/24 10:15 IV .Q48H VIVIANE PFSH Medical History MRSA infection Marijuana use Smoker Alcohol abuse Chronic pain Pancreatitis Home Medications ?Medication ?Instructions ?Recorded ?Last Taken ?Type folic acid 0.8 mg capsule 800 mcg PO DAILY 01/01/24 12/30/23 History Allergy/AdvReac Type Severity Reaction Status Date / Time No Known Allergies Allergy Verified 01/01/24 12:35 Surgical History History of placement of ear tubes Social History Smoking Status: Current every day smoker tobacco type: cigarettes Review of Systems (Anesthesia) ROS Narrative System reviewed and no additional complaints, except as documented.
[2024-01-03] MEDS: Lactated Ringers 1,000 ML 15 ML IV (10:32)
--- NOTE | 2024-01-03 12:23 | PCM.HP.STD ---
HPI - General General Date of Admission: 01/03/24 Date of Service: 01/03/24 Chief Complaint: Stent removal HPI Narrative JAVIER LANTIGUA, is a 38-year-old who presented to the ED with worsening abdominal pain and jaundice. He has a past medical history of alcohol abuse. He came into the hospital after being very nauseous and dizzy. He did have 1 episode of vomiting. In the ED he was discovered to be normotensive and tachycardic. Biochemical workup was consistent with alcoholic hepatitis and alcoholic pancreatitis. No imaging thus far. He does have an INR 1.6 and a bilirubin of 15. He does not take any blood thinners. He takes no medicines on a daily basis. He denies any Tylenol. Denies any family history of liver disease. He was diagnosed with acute alcoholic hepatitis with suspected underlying cirrhosis ? GI followed. Labs, imaging and presentation all consistent with alcoholic hepatitis with hepatosplenomegaly. Notably, choledocholithiasis also contributing to significantly elevated LFTs. High concern for underlying cirrhosis given clinical exam (spider angiomas), hypoalbuminemia and coagulopathy. Maddrey's score of 37 on admit. Treated with prednisone 40 mg daily during hospitalization with both significant improvement clinically and improvement in LFTs. Per GI recommendation, will continue prednisone 40 mg daily for another 10 days on discharge, followed by prednisone taper. Patient will need close outpatient follow-up with GI and eventually will need upper endoscopy for screening for varices. Acute pancreatitis on imaging with pancreatic head lesion ? GI followed as above. Pancreatic head lesion with common bile duct dilation, as well as findings consistent with acute pancreatitis noted on CT abdomen pelvis. Notably did not meet pancreatitis criteria as lipase was normal and patient had no abdominal pain. MRCP 10/07 showed mild narrowing of the distal common bile duct in the head of pancreas consistent with extrinsic compression from a pancreatic head mass. ERCP 10/08 with primary findings as noted below; ventral pancreatic duct was swept and nothing was found, and biopsy samples were taken from the lower third of the main duct. Will have close outpatient follow-up with GI regarding biopsy sample results and need for further monitoring. Choledocholithiasis ? GI followed as above. ERCP 10/08 showed choledocholithiasis, multiple localized biliary strictures in the lower third of the main bile duct, and dilated entire main bile duct. Biliary tree was swept, biliary sphincterotomy was performed, common bile duct and left main hepatic duct were successfully dilated, and a temporary stent was placed in the common bile duct. Had very good improvement in LFTs during hospitalization. Close GI follow-up on discharge and will need referral to general surgery for likely cholecystectomy. Alcohol abuse ? Was drinking 1/5 of alcohol daily prior to admission. Several year history of heavy drinking, no history of significant alcohol withdrawal per patient. Quit drinking about 4 days prior to hospitalization as his p.o. intake was severely limited by worsening alcohol hepatitis. No alcohol withdrawal symptoms to this point, CIWA protocol not necessary at this time. Strongly encouraged alcohol cessation on discharge. Treated with folate and thiamine while inpatient. Addiction medicine followed, planning for outpatient follow-up with 180 shortly after discharge. [facility] Medical History MRSA infection Marijuana use Smoker Alcohol abuse Chronic pain Pancreatitis Home Medications ?Medication ?Instructions ?Recorded ?Last Taken ?Type folic acid 0.8 mg capsule 800 mcg PO DAILY 01/01/24 12/30/23 History Allergy/AdvReac Type Severity Reaction Status Date / Time No Known Allergies Allergy Verified 01/03/24 10:31 Surgical History History of placement of ear tubes Social History Smoking Status: Current every day smoker tobacco type: cigarettes ROS Review of Systems ROS Unobtainable: Denies due to encephalopathy, due to endotracheal tube, due to mental condition, due to mental status or other Constitutional Constitutional: Reports change in weight, fatigue and malaise Eyes Eyes: Denies blurry vision, change in eye color, change in vision, discharge from eye(s), double vision, erythema, eye pain, loss of vision or other ENT HEENT: Denies abnormal hearing, dysphagia, ear pain, epistaxis, headache(s), hearing loss, nasal congestion, nasal discharge, post nasal drip, sinus pressure, sore throat or other Cardiovascular Cardiovascular: Denies chest pain, claudication, dyspnea on exertion, edema, lightheadedness, orthopnea, palpitations, paroxysmal nocturnal dyspnea, rapid heart rate, syncope or other Respiratory/Chest Respiratory/Chest: Denies cough, dyspnea, excessive phlegm production, hemoptysis, productive cough, shortness of breath at rest, shortness of breath with exertion, wheezing or other Gastrointestinal Gastrointestinal: Reports constipation; Denies hematemesis, hematochezia, loose stools, melena, nausea or vomiting Genitourinary Genitourinary: Denies burning urination, difficulty urinating, dysuria, hematuria, nocturia, urinary frequency, urinary hesitancy, urinary incontinence, urinary urgency or other Musculoskeletal Musculoskeletal: Denies arthralgias, back pain, joint pain, joint stiffness, joint swelling, myalgias, neck pain or other Neurologic Neurologic: Denies abnormal gait, abnormal speech, confusion, disequilibrium, dizziness, focal weakness, headache(s), numbness, paresthesias, seizure-like activity, seizures, syncope, tingling, tremor(s) or other Psychiatric Psychiatric: Denies anxiety, depression, homicidal ideation, suicidal ideation or other Endocrine Endocrinology: Denies change in body appearance, cold intolerance, excessive sweating, heat intolerance, polydipsia, polyuria or other Hematologic/Lymphatic Hematologic/Lymphatic: Denies anemia, easy bleeding, easy bruising, lymphadenopathy or other Allergic/Immunologic Allergic/Immunologic: Denies rhinitis, hives, eczemia, asthma or other Vital Signs Vital Signs Vital Signs: 01/03/24 10:34 01/03/24 10:34 Temperature 98.7 F Temperature Source Temporal Pulse Rate 98 Respiratory Rate 18 Respiratory Pattern Normal Blood Pressure 146/80 H Blood Pressure Mean 102 Blood Pressure Source Monitor Blood Pressure Position Semi-Fowlers Blood Pressure Location Right Arm Pulse Ox 100 Oxygen Delivery Method Room Air Weight Weight: 209 lb Body Mass Index (BMI) 29.1 Physical Exam Const alert, oriented x3, no apparent distress and average body habitus Constitutional Narrative: Pleasant younger male, jaundice improving, somewhat disheveled appearing, otherwise sitting up comfortably in bed, conversing normally, in no acute distress. Stable. General Appearance: cooperative and comfortable HEENT normocephalic, head/scalp atraumatic, hearing grossly normal bilaterally, nasal mucous membranes and turbinates normal and moist oral mucous membranes Eyes PERRL and EOMs intact bilaterally Eyes Narrative: Scleral icterus noted but improving. Neck full ROM Chest inspection of chest normal Resp normal respiratory effort, normal air movement, no use of accessory muscles and clear to auscultation bilaterally Cardio regular rate, regular rhythm, no murmurs and peripheral pulses 2+ throughout GI normal to inspection, nondistended, normoactive bowel sounds, soft to palpation, non-tender and non-distended Back/Spine normal ROM Extremity normal to inspection, full ROM and no pedal edema Skin Skin Narrative: Whole-body jaundice noted, improving. Spider angiomata present. Neuro moves all extremities and no focal motor deficits Speech: speech normal Psych mental status grossly normal Assessment & Plan Assessment/Plan (1) Alcoholic hepatitis: (2) Cirrhosis: (3) Anemia: (4) Mass of head of pancreas: PLAN: Plan 38-year-old with past medical history of diabetes mellitus, increased triglycerides consistent with EPI possibly gastroparesis who presents for stent removal or exchange. He was explained alternatives, risk and benefit including not withstanding bleeding, infection, sepsis, perforation, need for return to . Have an ASA of 3. He will
--- NOTE | 2024-01-03 13:00 | RAD_ITS ---
STUDY: ERCP REASON FOR EXAM: Male, 38 years old. PAIN FLUOROSCOPY TIME (if supplied): ( 45 seconds ) minutes/seconds. 15.45 mGy. TECHNIQUE: ERCP was performed by the concrete finishing machine operator. Contrast was injected. COMPARISON: None. FINDINGS: Fluoroscopic services provided for ERCP. RAD/ERCP Biliary/Pancreas IMPRESSION: Fluoroscopic services provided for ERCP. Electronically Signed: Johnny Hinton MD at 14:59 EDT ,
--- NOTE | 2024-01-03 13:13 | OP.ERCP_ITS ---
Patient Name: Jose Alberto Lucas Procedure Date: 01/03/2024 12:32 PM Date of : 1985 Age: 38 Procedure: ERCP Indications: Common bile duct stone(s), Jaundice, Elevated liver enzymes, Acute pancreatitis Providers: Raphael Watters DO Referring MD: No Primary Care Physician Medicines: Monitored Anesthesia Care Patient Profile: This is a 38 year old male. Refer to note in patient chart for documentation of history and physical. Patient has symptoms of acute right upper quadrant abdominal pain and acute jaundice. Complications: No immediate complications. Procedure: Pre-Anesthesia Assessment: - Prior to the procedure, a History and Physical was performed, and patient medications and allergies were reviewed. The patient is competent. The risks and benefits of the procedure and the sedation options and risks were discussed with the patient. All questions were answered and informed consent was obtained. Patient identification and proposed procedure were verified by the physician in the pre-procedure area. Mental Status Examination: alert and oriented. Airway Examination: normal oropharyngeal airway and neck mobility. Respiratory Examination: clear to auscultation. CV Examination: normal. Prophylactic Antibiotics: The patient does not require prophylactic antibiotics. Prior Anticoagulants: The patient has taken no anticoagulant or antiplatelet agents. ASA Grade Assessment: III - A patient with severe systemic disease. After reviewing the risks and benefits, the patient was deemed in satisfactory condition to undergo the procedure. The anesthesia plan was to use monitored anesthesia care (MAC). Immediately prior to administration of medications, the patient was re-assessed for adequacy to receive sedatives. The heart rate, respiratory rate, oxygen saturations, blood pressure, adequacy of pulmonary ventilation, and response to care were monitored throughout the procedure. The physical status of the patient was re-assessed after the procedure. After obtaining informed consent, the scope was passed under direct vision. Throughout the procedure, the patient's blood pressure, pulse, and oxygen saturations were monitored continuously. The Duodenoscope was introduced through the mouth, and advanced to the duodenum and used to inject contrast into the bile duct and ventral pancreatic duct. The ERCP was accomplished without difficulty. The patient tolerated the procedure well. Scope In: 12:57:02 PM Scope Out: 12:58:12 PM Total Procedure Duration Time 0 hours 1 minute 10 seconds Findings: The beef cattle farm manager film was normal. The esophagus was successfully intubated under direct vision. The scope was advanced to a normal major papilla in the descending duodenum without detailed examination of the pharynx, larynx and associated structures, and upper GI tract. The upper GI tract was grossly normal. The ventral pancreatic duct was deeply cannulated with the short-nosed traction sphincterotome. Contrast was injected. I personally interpreted the pancreatic duct images. There was brisk flow of contrast through the ducts. Image quality was adequate. Contrast extended to the pancreatic duct. Opacification of the entire pancreatic ductal system was successful. The maximum diameter of the ducts was 3 mm. The entire opacified area was normal. A long 0.025 inch Jagwire was passed into the ventral pancreatic duct. A 5 mm ventral pancreatic sphincterotomy was made with a traction (standard) sphincterotome using ERBE electrocautery. There was no post-sphincterotomy bleeding. To find object(s) the ventral pancreatic duct was swept with a 6 mm balloon starting at the pancreatic duct in the body of the pancreas. Nothing was found. A long 0.025 inch Jagwire was passed into the biliary tree. The short-nosed traction sphincterotome was passed over the guidewire and the bile duct was then deeply cannulated. Contrast was injected. Opacification of the entire biliary tree was successful. The maximum diameter of the ducts was 10 mm. The entire biliary tree except for the cystic duct and gallbladder and entire biliary tree contained stone(s), the largest of which was 4 mm in diameter. The main bile duct was mildly dilated, with a stone causing an obstruction. The largest diameter was 8 mm. A 5 mm biliary sphincterotomy was made with a traction (standard) sphincterotome using ERBE electrocautery. There was no post-sphincterotomy bleeding. The biliary tree was swept with a 12 mm balloon starting at the bifurcation. All stones were removed. One stent was removed from the common bile duct using a snare. One stent was removed from the pancreatic duct using a snare. Impression: - The entire main bile duct was mildly dilated, with a stone causing an obstruction. - Choledocholithiasis was found. Complete removal was accomplished by biliary sphincterotomy and balloon extraction. - A pancreatic sphincterotomy was performed. - The ventral pancreatic duct was swept and nothing was found. - A biliary sphincterotomy was performed. - The biliary tree was swept. - One stent was removed from the common bile duct. - One stent was removed from the pancreatic duct. Procedure Code(s): --- Professional --- 14474, Endoscopic retrograde cholangiopancreatography (ERCP); with removal of foreign body(s) or stent(s) from biliary/pancreatic duct(s) 82564, Endoscopic retrograde cholangiopancreatography (ERCP); with removal of calculi/debris from biliary/pancreatic duct(s) 72063, Endoscopic retrograde cholangiopancreatography (ERCP); with sphincterotomy/papillotomy 06538, Endoscopic retrograde cholangiopancreatography (ERCP); with sphincterotomy/papillotomy 30631, 26, Endoscopic catheterization of the pancreatic ductal system, radiological supervision and interpretation CPT copyright 2021 [employer]. All rights reserved. The codes documented in this report are preliminary and upon publications manager review may be revised to meet current compliance requirements. Raphael Watters DO 01/03/2024 1:12:57 PM This report has been signed electronically. Number of Addenda: 0 Note Initiated On: 01/03/2024 12:32 PM
--- NOTE | 2024-01-03 13:13 | OP.CCLET_ITS ---
01/03/2024 No Primary Care Physician Re : ERCP procedure for Jose Alberto Lucas [facility] Physician This procedure was performed on December. My impressions and recommendations are as follows: Impressions : - The entire main bile duct was mildly dilated, with a stone causing an obstruction. - Choledocholithiasis was found. Complete removal was accomplished by biliary sphincterotomy and balloon extraction. - A pancreatic sphincterotomy was performed. - The ventral pancreatic duct was swept and nothing was found. - A biliary sphincterotomy was performed. - The biliary tree was swept. - One stent was removed from the common bile duct. - One stent was removed from the pancreatic duct. Recommendations : My findings are described in the full procedure note, which is enclosed. If I can be of further assistance, please feel free to contact me at . Sincerely, Raphael Watters, 01/03/2024 1:12:57 PM This report has been signed electronically.
--- NOTE | 2024-01-03 13:23 | PCM.POST.ANE ---
Anesthesia: Postop Eval I Current Vital Signs Temperature: 97.2 F Pulse Rate: 82 Blood Pressure: 120/74 Respiratory Rate: 16 Pulse Ox: 97 Oxygen Delivery Method: Room Air Assessment Airway patent: Yes Spontaneous unlabored respirations: Yes Mental status: Asleep nausea: No Vomiting: No Anesthesia Complication: No Fluid Hydration Crystalloid volume administer (ml): 800 Total IV fluid infused: 800 Progress Note Anesthesia document: Postop Eval 1 completed: Yes
--- NOTE | 2024-01-03 14:03 | PCM.POSTANE2 ---
Anesthesia Postop Eval I Sum Postop Eval Completion status Anesthesia document: Postop Eval 1 completed: Yes Anesthesia Postop Eval I Summary Anesthesia Postop Eval I Summary: Anesthesia Postop Eval I: Assessment Summary Airway patent Yes 01/03/24 13:23 [email or web address] Spontaneous unlabored Yes 01/03/24 13:23 [email or web address] respirations Mental status Asleep 01/03/24 13:23 [email or web address] nausea No 01/03/24 13:23 [email or web address] Vomiting No 01/03/24 13:23 [email or web address] Anesthesia Postop Eval I: Fluid Summary Crystalloid volume administer 800 01/03/24 13:23 [email or web address] (ml) Colloids volume administered ( ml) Blood Product volume administered (ml) Total IV fluid infused 800 01/03/24 13:23 [email or web address] Anesthesia Postop Eval I: Summary Notes Anesthesia Complication No 01/03/24 13:23 [email or web address] Anesthesia Complication Comment: Post-operative progress note Anesthesia: Postop Eval II Evaluation Mental status: Awake Pain Level: 0 nausea: No Vomiting: No
== END 2024-01-03 13:57 | disposition home or self-care (01) ==
LOC: EN 09:53 → AC 10:02
PROVIDERS: Visit Provider Internal Medicine Gastroenterology
PROC: (CPT 43260; principal; 2024-01-03 11:10)
DX: K80.51 Calculus of bile duct without cholangitis or cholecystitis with obstruction (principal); K74.60 Unspecified cirrhosis of liver; K70.10 Alcoholic hepatitis without ascites; K86.89 Other specified diseases of pancreas; F10.10 Alcohol abuse, uncomplicated; D64.9 Anemia, unspecified; F17.210 Nicotine dependence, cigarettes, uncomplicated; Z86.14 Personal history of Methicillin resistant Staphylococcus aureus infection; Z87.19 Personal history of other diseases of the digestive system
CPT/HCPCS: 43264; 43262; 43275; 74330; 76000; J7120; J2405

== ENCOUNTER → 2024-01-25 | Outpatient (CLI) | payer SELFPAY ==
[2024-01-25 11:35] LABS: Erythrocyte Sedimentation Rate 30 mm/hr (0-20)
[2024-01-25 11:37] LABS: Absolute Neutrophil Count 3.7 X10^3/uL (2.0-7.7); Basophil# 0.05 X10^3/uL; Basophil% 0.6 % (0-1); Eosinophil# 0.25 X10^3/uL; Hematocrit 36.2 % (40-54); Hemoglobin 12.2 g/dL (13.0-16.5); Lymphocyte % 44.3 % (19-41); Mean Corp Hgb Conc 33.7 g/dL (32-36); Mean Corpuscular Hgb 32.6 pg (27.0-32.0); Mean Corpuscular Volume 96.8 fL (80-94); Mean Platelet Vol. 11.6 fl (6.2-12.0); Monocyte# 0.66 X10^3/uL; Monocyte% 7.9 % (0-10); NRBC Flagged by Analyzer 0 % (0-5); Neutrophil # 3.69 X10^3/uL (2.7-7.7); Neutrophil % 44.1 % (47-70); Platelet Count 145 K/mm3 (150-450); RBC Distribution Width CV 15.1 % (11.6-14.6); RBC Distribution Width SD 53.7 fl (35.1-43.9); Red Blood Count 3.74 M/mm3 (4.6-6.2); White Blood Count 8.4 K/mm3 (4.4-11.0)
[2024-01-25 12:01] LABS: International Normalized Ratio 1.4
[2024-01-25 12:04] LABS: Vitamin B12 1299 pg/mL (211-911)
[2024-01-25 12:11] LABS: ALB/GLOB Ratio 0.7 RATIO (0.9-2.4); AST(SGOT) 80 U/L (15-37); Alanine Aminotransfer ALT/SGPT 50 U/L (16-61); Albumin, Serum 3.2 g/dL (3.2-5.0); Alkaline Phosphatase 177 U/L (45-117); Amylase 45 U/L (25-115); Anion Gap 7 (5-15); BUN 10 mg/dL (7-18); BUN/Creat Ratio 12.3 RATIO (10-20); CRP 9.76 mg/L (0.0-3.0); Calcium,Total 9.6 mg/dL (8.5-10.1); Chloride 110 mmol/L (98-107); Creatinine, Serum 0.81 mg/dL (0.70-1.30); EST Glomerular Filtration Rate 113 mL/min (>60); Est Glom Filt Rate - Afr Amer 137 mL/min (>60); Ferritin 412 ng/mL (26-388); Globulin 4.9 g/dL (2.2-4.2); Glucose 92 mg/dL (74-106); Iron 74 ug/dL (65-175); Iron Binding Capacity,Total 247 ug/dL (250-450); Lipase 55 U/L (13-75); Potassium 3.8 mmol/L (3.5-5.1); Protein, Total 8.1 g/dL (6.4-8.2); Sodium Level 140 mmol/L (136-145)
[2024-01-29 19:07] LABS: Carbohydrate Ag 19-9 2261 59 U/mL (0-35); Carcinoembryonic Antigen 5.8 ng/mL (0.0-4.7); Copper, Serum or Plasma 107 ug/dL (69-132); Vitamin B1, Thiamine 109.9 nmol/L (66.5-200.0)
== END | disposition home or self-care (01) ==
LOC: LAB 10:25
PROVIDERS: Referring Provider Internal Medicine Gastroenterology; Visit Provider Internal Medicine Gastroenterology
DX: K86.89 Other specified diseases of pancreas (principal); K74.60 Unspecified cirrhosis of liver; D64.9 Anemia, unspecified
CPT/HCPCS: 36415; 80053; 82150; 82378; 82525; 82607; 82728; 83540; 83550; 83690; 84425; 85025; 85610; 85652; 86140; 86301

== ENCOUNTER → 2024-04-29 | Outpatient (CLI) | payer SELFPAY ==
[2024-04-29 10:38] LABS: Absolute Lymphocyte Count 3.68 X10^3/uL (0.83-4.51); Absolute Neutrophil Count 2.7 X10^3/uL (2.0-7.7); Basophil# 0.06 X10^3/uL; Basophil% 0.8 % (0-1); Eosinophil# 0.21 X10^3/uL; Eosinophils% 2.9 % (0-5); Hematocrit 39.8 % (40-54); Hemoglobin 13.7 g/dL (13.0-16.5); Lymphocyte # 3.68 X10^3/ul (0.83-4.51); Lymphocyte % 50.2 % (19-41); Mean Corp Hgb Conc 34.4 g/dL (32-36); Mean Corpuscular Hgb 32.9 pg (27.0-32.0); Mean Corpuscular Volume 95.7 fL (80-94); Mean Platelet Vol. 11.4 fl (6.2-12.0); Monocyte# 0.69 X10^3/uL; Monocyte% 9.4 % (0-10); NRBC Flagged by Analyzer 0 % (0-5); Neutrophil # 2.68 X10^3/uL (2.7-7.7); Neutrophil % 36.6 % (47-70); Platelet Count 129 K/mm3 (150-450); RBC Distribution Width CV 14.3 % (11.6-14.6); RBC Distribution Width SD 50.1 fl (35.1-43.9); Red Blood Count 4.16 M/mm3 (4.6-6.2); White Blood Count 7.3 K/mm3 (4.4-11.0)
[2024-04-29 10:40] LABS: International Normalized Ratio 1.2; Prothrombin Time (Protime)PT. 15.7 SECONDS (11.7-14.9)
[2024-04-29 10:41] LABS: Partial Thromboplast Time 38.1 Seconds (24.1-36.2)
[2024-04-29 10:46] LABS: Erythrocyte Sedimentation Rate 31 mm/hr (0-20)
[2024-04-29 11:20] LABS: ALB/GLOB Ratio 0.7 RATIO (0.9-2.4); AST(SGOT) 93 U/L (15-37); Alanine Aminotransfer ALT/SGPT 67 U/L (16-61); Albumin, Serum 3.4 g/dL (3.2-5.0); Alkaline Phosphatase 158 U/L (45-117); Anion Gap 9 (5-15); BUN 12 mg/dL (7-18); BUN/Creat Ratio 13.3 RATIO (10-20); CRP 8.91 mg/L (0.0-3.0); Calcium,Total 9.6 mg/dL (8.5-10.1); Chloride 106 mmol/L (98-107); EST Glomerular Filtration Rate 100 mL/min (>60); Est Glom Filt Rate - Afr Amer 121 mL/min (>60); Globulin 4.9 g/dL (2.2-4.2); Glucose 89 mg/dL (74-106); LDH 152 U/L (87-241); Potassium 3.7 mmol/L (3.5-5.1); Protein, Total 8.3 g/dL (6.4-8.2); Sodium Level 139 mmol/L (136-145)
[2024-04-30 04:07] LABS: AFP, Tumor Marker 3.5 ng/mL (0.0-6.9)
== END | disposition home or self-care (01) ==
LOC: LAB 10:06
PROVIDERS: Referring Provider Internal Medicine Gastroenterology; Visit Provider Internal Medicine Gastroenterology
DX: K74.60 Unspecified cirrhosis of liver (principal); K70.10 Alcoholic hepatitis without ascites; D64.9 Anemia, unspecified
CPT/HCPCS: 36415; 80053; 82105; 83615; 85025; 85610; 85652; 85730; 86140

== ENCOUNTER → 2024-05-09 | Outpatient (CLI) | payer SELFPAY ==
--- NOTE | 2024-05-09 08:44 | US_ITS ---
PROCEDURE: ABD LIMITED W/ ELASTOGRAPHY REASON FOR EXAM: Cirrhosis. COMPARISON: Comparison is made with prior study dated October 07, 2023. TECHNIQUE: Right upper quadrant abdominal ultrasound. SigFig ElastQ Imaging shear wave elastography for non-invasive assessment of liver tissue stiffness. Danny EPIQ Elite. FINDINGS: LIVER: Size: Enlarged (hepatomegaly) Length: 18.6 cm cm Echotexture: Coarsened Contour: Normal Lesions: None identified Elastography: EQI Med: 27 kPa EQI Med Marc: 2.99 m/s IQR/Med: 23 %* GALLBLADDER: Thickened wall. This measures 4.2 mm. COMMON BILE DUCT: Normal it measures 5.1 mm. PANCREAS: Heterogeneous echotexture. Visualized portions of the right kidney are unremarkable. No right upper quadrant ascites. US/ABD Limited w/ Elastography IMPRESSION: SEVERE HEPATIC FIBROSIS / CIRRHOSIS Reference Values: SRU <1.37 m/s (5.7kPa): No to mild fibrosis 1.37 m/s - 2.2 m/s: Moderate to severe fibrosis >2.2 m/s (15kPa): Significant fibrosis / cirrhosis METAVIR Score F2 or higher: 1.34 m/s (5.7kPa) F3 or higher: 1.55 m/s (7.3kPa) F4: 1.80 m/s (10kPa) * If the IQR/Med is >30%, the variance in the measurements is a large and the a ccuracy of the measurement may be in question. Reading Location: [id number]
== END | disposition home or self-care (01) ==
PROVIDERS: Referring Provider Internal Medicine Gastroenterology; Visit Provider Internal Medicine Gastroenterology
DX: K74.60 Unspecified cirrhosis of liver (principal); K70.10 Alcoholic hepatitis without ascites
CPT/HCPCS: 76705; 76981

== ENCOUNTER → 2024-05-23 | Outpatient (CLI) | payer SELFPAY ==
[2024-05-23] VITALS (11 sets, daily range): BP systolic 126–167; BP diastolic 68–100; PULSE 87–108; RESP 10–23; TEMP 36.4; O2SAT 95–98; BMI 29.9
--- NOTE | 2024-05-23 07:59 | CT_ITS ---
PROCEDURE: CT DIRECTED CORE LIVER BIOPSY REASON FOR EXAM: Cirrhosis. TECHNIQUE: Informed consent was obtained having explained the risks, benefits and alternatives in detail with the patient who accepted the risks and agreed to proceed. Laboratory review and clinical assessment was using. CT guidance a suitable location in the left lobe of the liver was identified. Using an anterior approach, puncture of the liver was uneventful with an 18-gauge core needle system. 4, 18-gauge core samples were obtained, and submitted in formalin to the pathologist for further assessment. Followup CT scan revealed no distinct sequelae. CONSCIOUS SEDATION PROTOCOL: The Drugs used were: 2 mg versed, IV., and 50 mcg Fentanyl, IV. The sedation time was: 20 minutes. Conscious sedation was started at 8:58 a.m. and terminated at 9:18 a.m.. The conscious sedation protocol was independently monitored. COMPARISON: None. FINDINGS: Successful liver biopsy. CT/Biopsy/Inj or Needle Placement IMPRESSION: 1. CT directed core needle biopsy of the liver, using CT image guidance with im age documentation as described. 2. Conscious Sedation protocol utilized with independent monitoring. One or more dose reduction techniques were used (e.g., Automated exposure contr ol, adjustment of the mA and/or kV according to patient size, use of iterative reconstruction technique). Reading Location: [facility]
[2024-05-23 08:03] LABS: Absolute Lymphocyte Count 3.67 X10^3/uL (0.83-4.51); Absolute Neutrophil Count 2.9 X10^3/uL (2.0-7.7); Basophil# 0.04 X10^3/uL; Basophil% 0.5 % (0-1); Eosinophil# 0.22 X10^3/uL; Eosinophils% 2.9 % (0-5); Hemoglobin 13.5 g/dL (13.0-16.5); Lymphocyte # 3.67 X10^3/ul (0.83-4.51); Lymphocyte % 48.5 % (19-41); Mean Corp Hgb Conc 34.6 g/dL (32-36); Mean Corpuscular Hgb 33.1 pg (27.0-32.0); Mean Corpuscular Volume 95.6 fL (80-94); Monocyte# 0.73 X10^3/uL; Monocyte% 9.7 % (0-10); NRBC Flagged by Analyzer 0 % (0-5); Neutrophil # 2.89 X10^3/uL (2.7-7.7); Neutrophil % 38.3 % (47-70); Platelet Count 127 K/mm3 (150-450); RBC Distribution Width CV 14.2 % (11.6-14.6); Red Blood Count 4.08 M/mm3 (4.6-6.2); White Blood Count 7.6 K/mm3 (4.4-11.0)
[2024-05-23 08:28] LABS: International Normalized Ratio 1.3; Prothrombin Time (Protime)PT. 16.1 SECONDS (11.7-14.9)
[2024-05-23 08:29] LABS: Partial Thromboplast Time 37.7 Seconds (24.1-36.2)
[2024-05-23 08:30] LABS: ALB/GLOB Ratio 0.7 RATIO (0.9-2.4); AST(SGOT) 87 U/L (15-37); Alanine Aminotransfer ALT/SGPT 69 U/L (16-61); Albumin, Serum 3.5 g/dL (3.2-5.0); Alkaline Phosphatase 160 U/L (45-117); Anion Gap 8 (5-15); BUN 11 mg/dL (7-18); BUN/Creat Ratio 14.5 RATIO (10-20); Calcium,Total 9.9 mg/dL (8.5-10.1); Chloride 108 mmol/L (98-107); Creatinine, Serum 0.76 mg/dL (0.70-1.30); EST Glomerular Filtration Rate 122 mL/min (>60); Est Glom Filt Rate - Afr Amer 148 mL/min (>60); Estimated Creatinine Clearance 158.47 ml/min; Globulin 4.7 g/dL (2.2-4.2); Glucose 96 mg/dL (74-106); Potassium 3.7 mmol/L (3.5-5.1); Protein, Total 8.2 g/dL (6.4-8.2); Sodium Level 138 mmol/L (136-145)
[2024-05-23] MEDS: 0.9% Saline Lock 10 ML Syringe IV (08:40)
[2024-05-23] MEDS: Midazolam 2 MG/2 ML Syringe IV (08:58)
[2024-05-23] MEDS: fentaNYL 100 MCG/2 ML Ampul IV (09:00)
[2024-05-23] MEDS: Lidocaine 2% (20 ml mdv) 20 ML Vial INFILT (09:10)
--- NOTE | 2024-05-23 09:15 | LIVB_PTH ---
PATIENT: JAVIER LANTIGUA LOC: CT U#:[id number] AGE/SX: 38/M ROOM: RE05/23/[address]: Dr. Raphael Watters DO : 1985 BED: DIS: 05/23/2024 SPEC #: [id number] RECD: 05/23/24 09:33 STATUS: ANJEL REEdtia #: [id number] WILLY: 05/23/24 09:[address]: Raphael Watters DEPT: SURGICAL PATHOLOGY RECD BY: Kb Somers ENTERED: 05/23/24 09:41 SP TYPE: LIVER BX OTHR DR: [facility] Tissues: Liver, NOS Procedures: PAS with Diastase (control) Trichrome (control) Special Stain Group I PAS Stain (control) Surgery Specimen Level V Retic (control) Iron Stain (control) HEADER OPERATION: CT guided liver biopsy PRE-OP DIAGNOSIS: Cirrhosis TISSUE SUBMITTED: 18 gauge x 4 cores - left lobe liver MICROSCOPIC DIAGNOSIS Liver, CT guided core biopsy: Consistent with cirrhosis. See microscopic description and comment. 05/26/2024 COMMENT Correlation with clinical, radiologic, laboratory findings and appropriate follow up are necessary. MICROSCOPIC DESCRIPTION Slides are reviewed. The specimen shows liver parenchymal tissue with the replacement of normal lobular architecture into multiple hepatocytes nodules divided by fibrous septa. Hepatocytes in the nodules show reactive changes. Mild acute and chronic inflammatory cell infiltrates are noted in the nodules. Sinusoids are dilated and show mild congestion. Fibrous septa in between the hepatocyte nodules show moderate chronic inflammatory cell infiltrate predominantly consists of lymphocytes and rare neutrophils. A few lipogranulomas are also noted. Interface inflammation is also noted. Iron stain shows absent iron. PAS stain with and without diastase do not show any abnormal accumulation of proteins. Reticulin and trichrome stain highlights the fibrous septa. All stains were performed with appropriate matched controls. GROSS DESCRIPTION Received in fixative is one container labeled with the patient's name and designated Liver biopsy. The specimen consists of multiple elongated fragments of eldridge soft tissue that in aggregate measure 2 x 0.5 x 0.1 cm. The specimen is totally submitted in one cassette. SJ.mr 05/23/2024 TC:5 CPT:36243,33646s7
[2024-05-23] MEDS: Ketorolac 30 MG/ML Syringe IV (09:38)
[2024-05-26 14:09] LABS: Carbohydrate Ag 19-9 2261 38 U/mL (0-35); Carcinoembryonic Antigen 4.9 ng/mL (0.0-4.7)
== END | disposition home or self-care (01) ==
LOC: CT 07:49
PROVIDERS: Student in an Organized Health Care Education/Training Program; Referring Provider Internal Medicine Gastroenterology; Visit Provider Internal Medicine Gastroenterology
DX: K74.60 Unspecified cirrhosis of liver (principal); K70.10 Alcoholic hepatitis without ascites; D64.9 Anemia, unspecified; K86.89 Other specified diseases of pancreas; F17.210 Nicotine dependence, cigarettes, uncomplicated; F10.10 Alcohol abuse, uncomplicated
CPT/HCPCS: 47000; 36415; 77012; 80053; 82378; 85025; 85610; 85730; 86301; 88307; 88312; 99156; A4216